=== PATIENT | female | born 1990 | race Caucasian/White ===

== ENCOUNTER 2024-07-30 20:02 | Emergency (ER) | payer OTHER, SELFPAY ==
[2024-07-30 20:06] VITALS: BP 124/84; PULSE 87; RESP 16; TEMP 36.3; O2SAT 100; BMI 25.1
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
--- NOTE | 2024-07-30 20:26 | ED.NURSE ---
PT placed in C-collar during triage. Pt states her neck feels better after being in C-collar. CMS remained intact after application of C-collar.
[2024-07-30] MEDS: diazePAM 5 MG/ML inj IV (20:33)
[2024-07-30 20:38] VITALS: O2SAT 98
[2024-07-30] MEDS: HYDROmorphone 0.5 mg/0.5 ml inj IVP ×2 (20:44→22:03)
--- OUTSIDE RECORDS SUMMARY | 2024-07-30 21:16 | XMS_ITS | Encounter Summary ---
Author Organization [facility] Address [address] [place] [id number] Care Team Providers Care Refuse Driver Name Role Phone Chela Valladares MD Primary Care Provider Herminio Jovel MD Primary Care Provider Herminio Jovel MD Unavailable [phone] Herminio Jovel MD Unavailable Hiwot Scott APRN [employer] Unavailable Herminio Jovel MD Unavailable Corina Manzo PA-C Unavailable Lorie Gayle [employer] Unavailable [phone] Rosemary Huynh [employer]ANT [employer] IN[employer] Unavailable + Hiwot Scott [employer] ACCOUNTANT [employer] IN[employer]CTOR Unavailable Herminio Jovle MD Unavailable Rosemary Huynh [employer] IN[employer] Unavailable + Handy Rebollar MD Unavailable [phone] Vibha Carrington MD Unavailable My Perez [facility] Unavailable Reason for Visit * Reason Onset Date Comments MyChart Communication 09/14/2012 Encounter Details Date Type Department Care Team (Late st Contact Info) Description 09/14/2012 [facility] [address] [phone] Herminio Jovel MD [address] [place] [phone] MyChart Communication Social History Tobacco Use Types Packs/Day Years Used Date Smoking Tobacco: Never Smokeless Tobacco: Never Alcohol Use Standard Drinks/Week Comments No 0 (1 standard drink = 0.6 oz pur e alcohol) Comments No Sex and Gender Information Value Date Recorded Sex Assigned at Female 06/23/2021 7:41 PM [employer] Legal Sex Female 3:16 AM [employer] Gender Identity Female 06/23/2021 7:41 PM [employer] Sexual Orientation Straight 06/23/2021 7: 41 PM [employer] documented as of this encounter Miscellaneous Notes * Telephone Encounter - Aliza Dixon - 09/14/2012 12:52 PM CDT See patient's [employer] message below. Please advise. Thank you! Aliza Dixon RN documented in this encounter Plan of Treatment Not on file documented as of this encounter Visit Diagnoses Not on filedocumented in this encounter Care Teams Refuse Driver Relationship Specialty Start Date End Date Chela Valladares MD [address] [place] [address] [phone] PCP - General 12/01/02 11/07/13 Herminio Jovel MD [address] [place] [address] PCP - General Family Practice 11/08/13 Herminio Jovel MD [address] [place] [address] PCP - Assigned PCP 06/27/17 08/09/18 Herminio Jovel MD [address] [place] [address], [place] [address] Assigned PCP 06/27/17 11/26/18 Hiwot Scott APRN [employer] [address] [place] [address], [place] [address] Assigned PCP 11/27/18 09/09/19 Herminio Jovel MD [address] [place] [address], [place] [address] Assigned PCP 09/10/19 10/07/19 Corina Manzo PA-C [address] [place] [address], [place] [address] Assigned PCP 10/08/19 03/16/20 Lorie Gayle APRN [employer] [address] [place] [address] Assigned PCP 03/17/20 05/11/20 Rosemary Huynh APRN [employer] [address] [place] [address], [place] [address] Assigned PCP 05/12/20 05/10/21 Hiwot Scott APRN [employer] [address] [place] [address] Assigned PCP 05/11/21 06/14/21 Herminio Jovel MD [address] [place] [address] Assigned PCP 06/29/21 04/28/24 Rosemary Huynh APRN [employer] [address] [place], [place] [id number] Assigned PCP 06/15/21 06/28/21 Handy Rebollar MD [facility] [address] [facility] [address] [place] [address] Pain Medicine 02/09/23 [place] [address] [place] [address] Assigned PCP 04/29/24 My Perez CNM [address] [place] [address] Assigned OBGYN Provider 04/29/24 documented as of this encounter
--- OUTSIDE RECORDS SUMMARY | 2024-07-30 21:16 | XMS_ITS | Encounter Summary ---
Author Organization [facility] Address [address] [place] [address] Care Team Providers Care Data Conversion Developer Name Role Phone Herminio Jovel MD Primary Care Provider Herminio Jovel MD Unavailable Rosemary Huynh APRN [facility] Unavailable + Handy Rebollar MD Unavailable [phone] Vibha Carrington MD Unavailable My Perez [facility] Unavailable [phone] Encounter Details Date Type Department Care Team (Late st Contact Info) Description 06/26/2021 [facility] [address] [phone] Herminio Jovel MD [address] [place] [phone] Social History Tobacco Use Types Packs/Day Years Used Date Smoking Tobacco: Never Smokeless Tobacco: Never Alcohol Use Standard Drinks/Week Comments No 0 (1 standard drink = 0.6 oz pur e alcohol) PHQ-2 Answer Date Recorded PHQ-2 Score 1 06/26/2021 Comments No Sex and Gender Information Value Date Recorded Sex Assigned at Female 06/23/2021 7:41 PM [employer] Legal Sex Female 3:16 AM [employer] Gender Identity Female 06/23/2021 7:41 PM [employer] Sexual Orientation Straight 06/23/2021 7: 41 PM [employer] Occupation Industry Job Start Date Job End Date Not on file Not on file Not on file Not on file documented as of this encounter Plan of Treatment Not on file documented as of this encounter Visit Diagnoses Not on filedocumented in this encounter Additional Health Concerns Assessment Noted Time PHQ-9 Depression Total Score: 8 06/26/19 8:35 AM [employer] documented as of this encounter Care Teams Data Conversion Developer Relationship Specialty Start Date End Date Herminio Jovel MD PCP - General Family Practice 11/08/13 Herminio Jovel MD [address] [place] [address] Assigned PCP 06/29/21 04/28/24 Rosemary Huynh APRN [employer] [address] [place] [address] [phone] Assigned PCP 06/15/21 06/28/21 Handy Rebollar MD [facility] [address] [facility] [address] [place] [address] Pain Medicine 02/09/23 [place] [address] [place] [address] Assigned PCP 04/29/24 My Perez CNM [phone] [facility] [address] [place], [place] [id number] Assigned OBGYN Provider 04/29/24 documented as of this encounter
--- OUTSIDE RECORDS SUMMARY | 2024-07-30 21:16 | XMS_ITS | Encounter Summary ---
Author Organization [place] Address [address] [place] [address] Care Team Providers Care Digital Marketing Executive Name Role Phone Herminio Jovel MD Primary Care Provider [phone] Herminio Jovel MD Unavailable Herminio Jovel MD Unavailable Hiwot Scott MAPPING ENGINEER INSURANCE ACCOUNT SPECIALIST Unavailable Herminio Jovel MD Unavailable Corina Manzo PA-C Unavailable Lorie Gayle MAPPING ENGINEER INSURANCE ACCOUNT SPECIALIST Unavailable [phone] Rosemary Huynh MAPPING ENGINEER INSURANCE ACCOUNT SPECIALIST Unavailable + Hiwot Scott APRN INSURANCE ACCOUNT SPECIALIST Unavailable Herminio Jovel MD Unavailable Rosemary Huynh MAPPING ENGINEER INSURANCE ACCOUNT SPECIALIST Unavailable + Handy Rebollar MD Unavailable [phone] Vibha Carrington MD Unavailable My Perez [facility] Unavailable [phone] Encounter Details Date Type Department Care Team (Late st Contact Info) Description 01/15/2014 [facility] [address] [address] Neeraj Pierce, OPERATOR SUPPLY Social History Tobacco Use Types Packs/Day Years Used Date Smoking Tobacco: Never Smokeless Tobacco: Never Alcohol Use Standard Drinks/Week Comments No 0 (1 standard drink = 0.6 oz pur e alcohol) Comments Yes Sex and Gender Information Value Date Recorded Sex Assigned at Female 06/23/2021 7:41 PM VP INFORMATICS Legal Sex Female 3:16 AM VP INFORMATICS Gender Identity Female 06/23/2021 7:41 PM VP INFORMATICS Sexual Orientation Straight 06/23/2021 7: 41 PM VP INFORMATICS documented as of this encounter Plan of Treatment Not on file documented as of this encounter Visit Diagnoses Not on filedocumented in this encounter Care Teams Digital Marketing Executive Relationship Specialty Start Date End Date Herminio Jovel MD PCP - General Family Practice 11/08/13 Herminio Jovel MD [address] [place] [address] [id number] PCP - Assigned PCP 06/27/17 08/09/18 Herminio Jovel MD [address] [place] [address] [id number] Assigned PCP 06/27/17 11/26/18 Hiwot Scott APRN INSURANCE ACCOUNT SPECIALIST [address] [place] [address] [id number] Assigned PCP 11/27/18 09/09/19 Herminio Jovel MD [address] [place] [address] [id number] Assigned PCP 09/10/19 10/07/19 Corina Manzo PA-C [address] [place] [address] [id number] Assigned PCP 10/08/19 03/16/20 Lorie Gayle APRN INSURANCE ACCOUNT SPECIALIST [address] [place] [address] [phone] Assigned PCP 03/17/20 05/11/20 Rosemary Huynh APRN INSURANCE ACCOUNT SPECIALIST [address] [place] [id number] Assigned PCP 05/12/20 05/10/21 Hiwot Scott APRN INSURANCE ACCOUNT SPECIALIST [address] [place] [address] [phone] Assigned PCP 05/11/21 06/14/21 Herminio Jovel MD [address] [place] [address] [id number] Assigned PCP 06/29/21 04/28/24 Rosemary Huynh APRN INSURANCE ACCOUNT SPECIALIST [address] [place] [address] [id number] Assigned PCP 06/15/21 06/28/21 Handy Rebollar MD [facility] [address] [facility] [address] [place] [address] Pain Medicine 02/09/23 [place] [address] [place] [address] Assigned PCP 04/29/24 My Perez CNM [address] [facility] [address] [place] [address] Assigned OBGYN Provider 04/29/24 documented as of this encounter
--- OUTSIDE RECORDS SUMMARY | 2024-07-30 21:16 | XMS_ITS | Encounter Summary ---
Author Organization [place] Address [address] [facility] [place] [address] Care Team Providers Care Toxicology Teacher Name Role Phone Herminio Jovel MD Primary Care Provider Handy Rebollar MD Unavailable [phone] Vibha Carrington MD Unavailable My Perez CNM Unavailable [phone] Reason for Referral * Diagnostic Imaging Ultrasound (Routine) - Pending Review Specialty Diagnoses / Procedures Referred By Contsilvia t Referred To Contact Radiology. Diagnoses Breakthrough bleeding with IUD Procedures US Pelvic Complete with Transvaginal My Perez CNM [address] [place] [address] Phone: tel: fax: Referral ID Status Reason Start Date Expiration Date V isits Requested Visits Authorized [id number] Pending Review 05/17/2024 05/17/2025 1 1 RATIVE ENGRAVER Encounter Details Date Type Department Care Team (Latest Contact Info) Description 05/17/2024 [facility] Women[facility] [address] [place] [id number] My Perez CNM [address] [place] [address] Breakthrough bleeding with IUD (Primary Dx) Social History Tobacco Use Types Packs/Day Years Used Date Smoking Tobacco: Never Smokeless Tobacco: Never Alcohol Use Standard Drinks/Week Comments No 0 (1 standard drink = 0.6 oz pur e alcohol) PHQ-2 Answer Date Recorded PHQ-2 Score 0 08/16/2023 Adolescent Education Answer Date Record ed Getting School Help Needed Not on file 03/10 Interpersonal Safety Answer Date Record ed Do you feel physically and e motionally safe where you currently live? Yes 04/11/2024 Within the past 12 months, h ave you been hit, slapped, kicked or otherwise physically hurt by someone? No 04/11/2024 Within the past 12 months, h ave you been humiliated or emotionally abused in other ways by your partner or ex-partner? No 04/11/2024 Comments No Sex and Gender Information Value Date Recorded Sex Assigned at Female 06/23/2021 7:41 PM DECORATIVE ENGRAVER Legal Sex Female 3:16 AM DECORATIVE ENGRAVER Gender Identity Female 06/23/2021 7:41 PM DECORATIVE ENGRAVER Sexual Orientation Straight 06/23/2021 7: 41 PM DECORATIVE ENGRAVER Occupation Industry Job Start Date Job End Date Not on file Not on file Not on file Not on file documented as of this encounter Miscellaneous Notes * Telephone Encounter - Leanna Lora RN - 05/17/2024 10:17 AM DECORATIVE ENGRAVER Please address the my chart message. Pt had a Mirena IUD inserted on 04/21/24. Has concerns with bleeding. Especially after intercourse. Would you like her to have a pelvic US to check the placement of the IUD? Ronit Lora RN RATIVE ENGRAVER documented in this encounter Plan of Treatment Scheduled Orders Name Type Priority Associated Diagnoses Orde r Schedule US Pelvic Complete with Transvaginal Imaging Routine Breakthrough bleeding with IUD Expected: 05/17/2024 (Approximate), Expires: 05/17/2025 documented as of this encounter Visit Diagnoses Diagnosis Breakthrough bleeding with IUD- Primary Metrorrhagia documented in this encounter Additional Health Concerns Assessment Noted Time PHQ-9 Depression Total Score: 8 06/26/19 22 8:35 AM DECORATIVE ENGRAVER documented as of this encounter Care Teams Toxicology Teacher Relationship Specialty Start Date End Date Herminio Jovel MD PCP - General Family Practice 11/08/13 Handy Rebollar MD [facility] [address] [facility] [address] [place] [address] Pain Medicine 02/09/23 [place] [address] [place] [address] Assigned PCP 04/29/24 My Perez CNM [address] [place] [address] Assigned OBGYN Provider 04/29/24 documented as of this encounter
--- OUTSIDE RECORDS SUMMARY | 2024-07-30 21:16 | XMS_ITS | Clinical Summary ---
Author Organization [place] Address [address] [place] [address] Care Team Providers Care Milk Vendor Name Role Phone Connie Jovel MD Primary Care Provider Handy Rebollar MD Unavailable [phone] Vibha Carrington MD Unavailable My Perez CNM Unavailable [phone] Allergies Active Allergy Reactions Criticality Noted Date Comments Hydrocodone-Acetaminophen 05/16/2019 Other reaction(s): Headache Patient reported, pharmacy should review with her and her home meds. Medications MULTIVITAMIN OR 1 daily Acti ve cyclobenzaprine (FLEXERIL) 10 MG tabletIndications :Chronic low back pain, unspecified back pain laterality, with sciatica presence unspecified Take 1 tablet (10 mg) by mouth nightly as needed for muscle spasms 30 tablet 0 6 Active norgestrel-ethiny l estradiol (LO/OVRAL) 0.3-30 MG-MCG tabletIndications :Encounter for initial prescription of contraceptive pills Take 1 tablet by mouth daily. 90 tablet 4 Active amphetamine-dextr oamphetamine (ADDERALL) 10 MG tabletIndications :ADHD (attention deficit hyperactivity disorder), combined type Take 1 tablet (10 mg) by mouth daily. In the afternoon. 30 tablet 5 Active amphetamine-dextr oamphetamine (ADDERALL) 20 MG tabletIndications :ADHD (attention deficit hyperactivity disorder), combined type Take 1 tablet (20 mg) by mouth 3 times daily. 90 tablet 5 Active amphetamine-dextr oamphetamine (ADDERALL) 20 MG tabletIndications :ADHD (attention deficit hyperactivity disorder), combined type Take 1 tablet (20 mg) by mouth 2 times daily. 60 tablet 5 09/13/19 25 Active amphetamine-dextr oamphetamine (ADDERALL) 10 MG tabletIndications :ADHD (attention deficit hyperactivity disorder), combined type Take 1 tablet (10 mg) by mouth daily. In the afternoon. 30 tablet 5 09/12/19 25 Active amphetamine-dextr oamphetamine (ADDERALL) 20 MG tabletIndications :ADHD (attention deficit hyperactivity disorder), combined type Take 1 tablet (20 mg) by mouth 2 times daily. 60 tablet 5 10/13/19 25 Active amphetamine-dextr oamphetamine (ADDERALL) 10 MG tabletIndications :ADHD (attention deficit hyperactivity disorder), combined type Take 1 tablet (10 mg) by mouth daily. Take 1 tab in pm as needed 30 tablet 5 10/12/19 25 Active amphetamine-dextr oamphetamine (ADDERALL) 10 MG tabletIndications :ADHD (attention deficit hyperactivity disorder), combined type Take 1 tablet (10 mg) by mouth daily. In the afternoon. 30 tablet 5 07/27/19 25 Discontinu ed(Reorder (No AVS)) amphetamine-dextr oamphetamine (ADDERALL) 20 MG tabletIndications :ADHD (attention deficit hyperactivity disorder), combined type Take 1 tablet (20 mg) by mouth 3 times daily. 90 tablet 5 07/27/19 25 Discontinu ed(Reorder (No AVS)) amphetamine-dextr oamphetamine (ADDERALL) 10 MG tabletIndications :ADHD (attention deficit hyperactivity disorder), combined type Take 1 tablet (10 mg) by mouth daily. Take 1 tab in pm as needed 30 tablet 4 07/27/19 25 Discontinu ed(Reorder (No AVS)) amphetamine-dextr oamphetamine (ADDERALL) 20 MG tabletIndications :ADHD (attention deficit hyperactivity disorder), combined type Take 1 tablet (20 mg) by mouth 2 times daily. 60 tablet 4 07/27/19 25 Discontinu ed(Reorder (No AVS)) amphetamine-dextr oamphetamine (ADDERALL) 10 MG tabletIndications :ADHD (attention deficit hyperactivity disorder), combined type Take 1 tablet (10 mg) by mouth daily. In the afternoon. 30 tablet 5 07/27/19 25 Discontinu ed(Reorder (No AVS)) amphetamine-dextr oamphetamine (ADDERALL) 20 MG tabletIndications :ADHD (attention deficit hyperactivity disorder), combined type Take 1 tablet (20 mg) by mouth 2 times daily. 60 tablet 5 07/27/19 25 Discontinu ed(Reorder (No AVS)) Active Problems Problem Noted Date Diagnosed Date ASCUS with positive high risk HPV cervical 04/21 Overview (07/27/2024): 2009 NIL pap 2012 NIL pap 2016 NIL pap 2019 NIL pap 04/21/24 ASCUS pap, + HR HPV (not 16 or 18). Plan colp due by 07/22/24 05/01/24 LM on VM. Splysthart message sent. Pt read message 07/06/24 [place]--no showed appt 07/27/24 Reminder Mychart ADHD (attention deficit hype ractivity disorder), combined type 01/30/2022 Panic attack 06/26/2021 Generalized anxiety disorder 12/25/2020 Insomnia, unspecified type 06/22/2017 Chronic low back pain 01/14/2009 Overview (06/22/2017): Patient is followed by CONNIE JOVEL for ongoing prescription of pain medication. All refills should be approved by this provider, or covering partner. Medication(s): percocet 5/325 #40 per month. Dilaudid 2 mg #20 per month Diazepam 5 mg #20 per month for back spasms Flexeril 10 mg #30 per month Clinic visit frequency required: Q 6 months Controlled substance agreement on file: Yes Date(s): Date(s): 08/05/12 Pain Clinic evaluation in the past: Yes DIRE Total Score(s): No flowsheet data found. Last [facility] website verification: 06/22/2017 [email or web address] Resolved Problems Problem Noted Date Diagnosed Date Resolved Date Insomnia - CSA 08/05/12 - ever y 6 month med check appointments 03/22/2015 06/22/2017 Overview (03/22/2015): Patient is followed by CONNIE JOVEL for ongoing prescription of AMBIEN for insomnia. All refills should be approved by this provider, or covering partner. Medication(s): ambien 10 mg . Maximum quantity per month: 30 Clinic visit frequency required: Q 6 months Controlled substance agreement on file: Yes Date(s): 08/05/12 Benzodiazepine use reviewed by psychiatry: No Last [facility] website verification: done on 02/20/15 [email or web address] Controlled substance agreeme nt signed on 08/05/2012 - every 4 month med check appts 08/05/2012 03/22/2015 Overview (07/16/2014): Patient is followed by Bossman Jovel MD for ongoing prescription of a controlled medicine. Medicine: percocet 5/325 . Maximum use per month: 30 Dilaudid 2 mg 1-2 q 6 hours for severe pain # 20 per 30 days Valium 5 mg q 6 hours - # 20 per month Expected duration: uncertain Medication agreement on file: YES - signed: 08/05/2012 Clinic visit recommended: Q 4 months Sprain of lumbar region 09/23/201112/2011 CARDIOVASCULAR SCREENING; LD L GOAL LESS THAN 160 04/06/2010 10/04/2019 depressive disorder -FULL REMISS- on meds 06/29/2007 06/30/2012 Other acne 06/13/2004 06/26/2021 Encounters Date Type Department Care Team Description 07/27/2024 My[facility] Refill [address] [phone] Connie Jovel MD Refill Request 05/17/2024 [facility] Medical Advice [facility] Women's [address] [place] [phone] Chris My Anya, KARLA Breakthrough bleeding with IUD (Primary Dx) 05/11/[address] [place] [address] Connie Jovel MD Refill Request from Last 3 Months Immunizations Name Administration Dates Next Due DTAP (<7y) 12/14/1994 HIB (PRP-T) 12/27/1990,09/20/1990,07/19/1990 HPV 02/11/2010,01/26/2008 HepB 04/29/2001,05/09/1998,06/12/1997 Historical DTP/aP 03/15/1991, 0,02/05/1990,1989 Influenza Vaccine >6 months,quad, PF 03/18/2016, 04/03/2015,03/28/2013 MMR 04/29/2001,12/27/1990 Mantoux Tuberculin Skin Test 02/11/2010 Meningococcal ACWY (Menactra ) 01/26/2008 OPV, trivalent, live 12/14/1994,03/15/19 91,02/05/1990,1989 TD,PF 7+ (Tenivac) 12/13/2001 TDAP (Adacel,Boostrix) 07/08/2013 TDAP Vaccine (Boostrix) 01/23/2016,06/12/2013, Varicella 10/08/1997 Family History Medical History Relation Comments Diabetes Father Other Cancer Father Prostate - sprea d to inguinal lymph nodes Prostate Cancer Father Prostate removal fall 2012. Heart Disease Maternal Grandfather ag e 61 Cerebrovascular Disease Maternal Grandmother Osteoporosis Maternal Grandmother Anxiety Disorder Mother Hyperlipidemia Mother Hypertension Mother Diabetes Other 1 Great grandmothe r Diabetes Other 2 Cancer Paternal Grandfather lung deceas ed Circulatory Paternal Grandmother aneursym de ceased Relation Status Comments Father Maternal Grandfather Maternal Grandmother Mother Other 1 Other 2 Paternal Grandfather Paternal Grandmother Social History Tobacco Use Types Packs/Day Years Used Date Smoking Tobacco: Never Smokeless Tobacco: Never Tobacco Cessation:Counseling Given: No Alcohol Use Standard Drinks/Week Comments No 0 [...] Sex Assigned at Female 06/23/2021 7:41 PM COLD ROLL OPERATOR Legal Sex Female 3:16 AM COLD ROLL OPERATOR Gender Identity Female 06/23/2021 7:41 PM COLD ROLL OPERATOR Sexual Orientation Straight 06/23/2021 7: 41 PM COLD ROLL OPERATOR Occupation Industry Job Start Date Job End Date Not on file Not on file Not on file Not on file Last Filed Vital Signs Vital Sign Reading Time Taken Comments Blood Pressure 108/64 04/21/2024 9:55 AM COLD ROLL OPERATOR Pulse 107 04/11/2024 9:25 AM COLD ROLL OPERATOR Temperature 37.1 C (98.7 F) 04/11/2024 9:25 AM COLD ROLL OPERATOR Respiratory Rate 18 04/11/2024 9:25 AM COLD ROLL OPERATOR Oxygen Saturation 100% 04/11/2024 9:25 AM COLD ROLL OPERATOR Inhaled Oxygen Concentration - - Weight 76.2 kg (168 lb) 04/21/2024 9:55 AM COLD ROLL OPERATOR Height 170.2 cm (5' 7) 04/21/2024 9:55 AM COLD ROLL OPERATOR Body Mass Index 26.31 04/21/2024 9:55 AM COLD ROLL OPERATOR Plan of Treatment Health Maintenance Due Date Last Done Comments ADVANCE CARE PLANNING 1989 YEARLY PREVENTIVE VISIT 01/13/2005 01/14/2004 HPV IMMUNIZATION (3 - 3-dose series) 05/06/2010 02/11/2010, 01/26/2008 URINE DRUG SCREEN 06/11/2023 06/11/2022 ANNUAL REVIEW OF HM ORDERS 11/20/2023 11/19/2022, INFLUENZA VACCINE (#1) 2024 9 (Declined), 03/18/2016, 04/03/2015, Additional history exists PHQ-2 (once per calendar year) 2024 08/16/2023, 07/22/2023, 11/19/2022, Additional history exists COLPOSCOPY 07/21/2024 DTAP/TDAP/TD IMMUNIZATION (10 - Td or Tdap) 01/22/2026 01/23/2016, 07/08/2013, 06/12/2013, Additional history exists HPV TEST 04/21/2029 04/21/2024 PAP 04/21/2029 04/21/2024, 04/07, 09/08/2018, Additional history exists ZOSTER IMMUNIZATION (1 of 2) 09/13/2039 HEPATITIS B IMMUNIZATION Completed 001, 05/09/1998, 06/12/1997 MENINGITIS IMMUNIZATION Completed 01/26/2008 COVID-19 Vaccine Discontinued HEPATITIS C SCREENING Discontinued HIV SCREENING Discontinued Pneumococcal Vaccine: Pediatrics (0 to 5 Years) and At-Risk Patients (6 to 49 Years) Aged Out No longer eligible based on patient's age to complete this topic Procedures Procedure Name Priority Date/Time Associated Diagnosis Comments HPV AND GYNECOLOGIC CYTOLOGY PANEL Routine 04/21/2024 10:30 AM [facility] Cervical cancer screening from Last 3 Months or Most Recently Relevant to Health Maintenance Results * (ABNORMAL) HPV and Gynecologic Cytology Panel ??? Recommended Age 30-65 Years (04/21/2024 10:30 AM COLD ROLL OPERATOR) Human Papilloma Virus 16 DNA Negative Negative 04/25/2024 7:34 AM COLD ROLL OPERATOR [facility] Human Papilloma Virus 18 DNA Negative Negative 04/25/2024 7:34 AM [facility] Human Papilloma Virus Other Positive(A) Negative 04/25/2024 7:34 AM [facility] FINAL DIAGNOSIS This patient's sample is positive for other HR HPV DNA (types 31, 33, 35, 39, 45, 51, 52, 56, 58, 59, 66 or 68), not HPV 16 or HPV 18 DNA. This result requires clinical correlation with concurrent cytology findings. METHODOLOGY: The LIN TV system uses automated extraction, simultaneous amplification of HPV (E6/E7 oncogenes) and beta-globin, followed by real time detection of fluorescent labeled HPV and beta globin using specific oligonucleotide probes. The test specifically identifies types HPV 16 DNA and HPV 18 DNA while concurrently detecting the rest of the high risk types (31, 33, 35, 39, 45, 51, 52, 56, 58, 59, 66 or 68). COMMENTS: This test is not intended for use as a screening device for woman under age 30 with normal cervical cytology. Results should be correlated with cytologic and histologic findings. Close clinical follow up is recommended. Please see the separate Gynecologic Cytology (Pap) report from the same collection date. 04/25/2024 7:34 AM COLD ROLL OPERATOR [facility]AGNOSTICS Brushing ENDOCERVICAL STRUCTURE / Unknown Non-blood Collection / Unknown 04/21/2024 10:30 AM COLD ROLL OPERATOR 04/21/2024 10:42 AM COLD ROLL OPERATOR My Perez [facility] - BLOOD ORDERABLES Final Result [facility] Specialty Lab [address] [facility], [address] [place] [address], [place] [facility] Molecular Diagnostics [address] [facility] [place] [address], [facility] from Last 3 Months or Most Recently Relevant to Health Maintenance Insurance [facility] Care Teams Milk Vendor Relationship Specialty Start Date End Date Connie Jovle MD PCP - General Family Practice 11/08/13 Handy Rebollar MD [facility] [address] [facility] [address] [place] [address] Pain Medicine 02/09/23 [place] [address] [place] [address] Assigned PCP 04/29/24 My Perez CNM [address] [address] Assigned OBGYN Provider 04/29/24
--- OUTSIDE RECORDS SUMMARY | 2024-07-30 21:16 | XMS_ITS | Encounter Summary ---
Author Organization [facility] Address [address] [place] [address] Care Team Providers Care Ginner Helper Name Role Phone Chela Valladares MD Primary Care Provider DoctorSu MD Primary Care Provider Unavailabl Herminio Son MD Primary Care Provider Herminio Jovel MD Unavailable Herminio Jovel MD Unavailable Hiwot Scott APRN PRECISION CROP MANAGER Unavailable Herminio Jovel MD Unavailable Corina Manzo PA-C Unavailable Lorie Gayle CAREER CENTER DIRECTOR PRECISION CROP MANAGER Unavailable [phone] Rosemary Huynh CAREER CENTER DIRECTOR PRECISION CROP MANAGER Unavailable + Hiwot Scott CAREER CENTER DIRECTOR PRECISION CROP MANAGER Unavailable Herminio Jovel MD Unavailable Rosemary Huynh CAREER CENTER DIRECTOR PRECISION CROP MANAGER Unavailable + Handy Rebollar MD Unavailable [phone] Vibha Carrington MD Unavailable My Perez [facility] Unavailable [phone] Encounter Details Date Type Department Care Team (Late st Contact Info) Description 05/27/2002 [facility] [address] [place] [phone] Harjinder Berkowitz MD XXX RESIGNED XXX [address] [place] [address] ER ENCOUNTER (Primary Dx) Social History Tobacco Use Types Packs/Day Years Used Date Smoking Tobacco: Never Smokeless Tobacco: Never Alcohol Use Standard Drinks/Week Comments No 0 (1 standard drink = 0.6 oz pur e alcohol) Comments No Sex and Gender Information Value Date Recorded Sex Assigned at Female 06/23/2021 7:41 PM CANDY POLISHER Legal Sex Female 3:16 AM CANDY POLISHER Gender Identity Female 06/23/2021 7:41 PM CANDY POLISHER Sexual Orientation Straight 06/23/2021 7: 41 PM CANDY POLISHER Occupation Industry Job Start Date Job End Date Not on file Not on file Not on file Not on file documented as of this encounter Progress Notes * 05/27/2002 11:59 PM CSTAddended by: ALE DAVIDSON on: 06/05/2002,12:21 PM Modules accepted: Progress Notes 00 :00 Emergency Department Encounter-[facility] () [Entered: 00:00 Transcrip tion ([facility])] : 88 CHIEF COMPLAINT: Headache, neck pain. HISTORY OF PRESENT ILLNESS: Emanuel is a 11-year-old girl. She presents to the Emergency Department with a history of being ill for the last week. On Wednesday, she had a headache and nausea that continued and she saw the doctor a few sami es. It was treated like a migraine. Now yesterday she developed aches all over. She has had no sig nificant fever. She otherwise has felt a little bit of nausea, but otherwise negative. REVIEW OF S TEMS: GENERALLY, she has had no fever. EYES without erythema or discharge, though she says she feel s pressure. ENT she has no nasal drainage. No sore throat. NECK reveals neck pain bilaterally on e ither side of the midline on her posterior neck, no anterior neck. RESPIRATORY she has had no signif icant cough. GASTROINTESTINAL she has had nausea, but no vomiting, and no diarrhea. GENITOURINARY sh loraine has had no difficulty with urination. She has her period but she does not use tampons. MUSCULOSKELE NICOLE achy all over. PAST MEDICAL HISTORY: Allergies - none. Medications - Minocycline, hydrocodone. PAST MEDICAL HISTORY: Acne and history of migraines. SOCIAL HISTORY: She is accompanied by darcie forman. PHYSICAL EXAMINATION: This is an alert and cooperative young woman in no acute distress. Her t emperature is 98.3, pulse 91, respiratory rate 20, blood pressure 122/65. HEENT reveals atraumatic, normocephalic skull and face. Pupils are equal and reactive. She has full extraocular movements. O ropharynx is moist and benign without tonsillar hypertrophy nor exudate. NECK is supple with bilater al anterior cervical adenopathy that is not tender. She has no posterior nodes. She has bilaterally tender splenius capitis. Her LUNGS are clear. CARDIAC examination reveals normal S1, S2 without mur mur, rub or gallop. Her ABDOMEN is soft and nontender without hepatosplenomegaly or mass. EXTREMITI ES are without clubbing, cyanosis or edema. NEUROLOGICALLY, the patient is alert. Cranial nerves II -XII are intact. Strength is 5/5 throughout. She has negative Romberg. MEDICAL DECISION MAKING: [address] 1: Headache and muscle aches all over. I feel this likely an infectious disease cause. [place] spot is negative. CPK is pending. Urinalysis is negative. I was looking for any protein or blood in the urine that would be consistent with myositis. There is none noted in the urine. At this point , I feel the patient can be treated symptomatically and discharged home. DISCHARGE PLAN: Tyleno l and Motrin. Fluids and rest. DISCHARGE DIAGNOSES: History of headache and muscle pain. DISPOSIT ION: Home. [id number] _ [facility] MD MT: Document: [id number] [place], [place] Name: JUDYEMANUEL EMERGENCY ROOM ENCOUNTER Page 2 of 2 LCN: KELLEE DSC: 05/27/2002 [place], [place] N stefanie: MR#: : Admit Date: EMANUEL BRUNSON -12 1990 05/27/2002 Doctor: DELTA RHODES MD EMERGENCY ROOM ENCOUNTER Page 1 of 2 Electronically filed by Ale Davidson 06/05/2002 12: 21 PM documented in this encounter Plan of Treatment Not on file documented as of this encounter Visit Diagnoses Diagnosis ER ENCOUNTER- Primary documented in this encounter Care Teams Ginner Helper Relationship Specialty Start Date End Date Chela Valladares MD [address] [place] [address] PCP - General 12/01/02 11/07/13 Su Culver MD PCP - General 07/22/01 11/30/02 Herminio Jovel MD PCP - General Family Practice 11/08/13 Herminio Jovel MD [address] [place] [address] PCP - Assigned PCP 06/27/17 08/09/18 Herminio Jovel MD [address] [place] [address] Assigned PCP 06/27/17 11/26/18 Hiwot Scott, CAREER CENTER DIRECTOR PRECISION CROP MANAGER [address] [place] [address] Assigned PCP 11/27/18 09/09/19 Herminio Jovel MD [address] [place] [address] 21566 Assigned PCP 09/10/19 10/07/19 Corina Manzo PA-C [address] [place] [address]36 Assigned PCP 10/08/19 03/16/20 Lorie Gayle APRN PRECISION CROP MANAGER [address] [place] [address] Assigned PCP 03/17/20 05/11/20 Rosemary Huynh, GOMEZ PRECISION CROP MANAGER [address] [place] [address] Assigned PCP 05/12/20 05/10/21 Hiwot Scott APRN PRECISION CROP MANAGER [address] [place] [address]31 Assigned PCP 05/11/21 06/14/21 Herminio Jovel MD [address] [place] [address]6077 Assigned PCP 06/29/21 04/28/24 Rosemary Huynh, GOMEZ PRECISION CROP MANAGER [address] [place] [address]758 Assigned PCP 06/15/21 06/28/21 Handy Rebollar MD CHAR PERCISION PAIN MANAGEMENT [address] [address] Pain Medicine 02/09/23 [place] [address] [place] [address] Assigned PCP 04/29/24 My Perez [facility] [address] [place] [address] Assigned OBGYN Provider 04/29/24 documented as of this encounter
--- OUTSIDE RECORDS SUMMARY | 2024-07-30 21:16 | XMS_ITS | Encounter Summary ---
Author Organization [place] Address [address] [place] [address] Care Team Providers Care Peanut Farmer Name Role Phone Herminio Jovel MD Primary Care Provider Herminio Jovel MD Unavailable [phone] Handy Rebollar MD Unavailable [phone] Vibha Carrington MD Unavailable My Perez [facility] Unavailable [phone] Encounter Details Date Type Department Care Team (Late st Contact Info) Description 02/23/2022 [facility] Medical Advice [address] [phone] Wendy Manzano, [facility] Social History Tobacco Use Types Packs/Day Years Used Date Smoking Tobacco: Never Smokeless Tobacco: Never Alcohol Use Standard Drinks/Week Comments No 0 (1 standard drink = 0.6 oz pur e alcohol) PHQ-2 Answer Date Recorded PHQ-2 Score 1 06/26/2021 Comments No Sex and Gender Information Value Date Recorded Sex Assigned at Female 06/23/2021 7:41 PM STUDENT SERVICES ADVISOR Legal Sex Female 3:16 AM STUDENT SERVICES ADVISOR Gender Identity Female 06/23/2021 7:41 PM STUDENT SERVICES ADVISOR Sexual Orientation Straight 06/23/2021 7: 41 PM STUDENT SERVICES ADVISOR Occupation Industry Job Start Date Job End Date Not on file Not on file Not on file Not on file documented as of this encounter Plan of Treatment Not on file documented as of this encounter Visit Diagnoses Not on filedocumented in this encounter Additional Health Concerns Assessment Noted Time PHQ-9 Depression Total Score: 8 06/26/19 22 8:35 AM STUDENT SERVICES ADVISOR documented as of this encounter Care Teams Peanut Farmer Relationship Specialty Start Date End Date Herminio Jovel MD PCP - General Family Practice 11/08/13 Herminio Jovel MD [address] [place] [address] Assigned PCP 06/29/21 04/28/24 Handy Rebollar MD CHAR PERCISION PAIN MANAGEMENT [address] [facility] [address] [place] [address] Pain Medicine 02/09/23 [place] [address] [place] [address] Assigned PCP 04/29/24 My Perez CNM [address] [facility] 700 [place] [address] Assigned OBGYN Provider 04/29/24 documented as of this encounter
--- OUTSIDE RECORDS SUMMARY | 2024-07-30 21:16 | XMS_ITS | Encounter Summary ---
Author Organization [facility] Address [address] [place] [address] Care Team Providers Care Smoking Tobacco Packer Hand Name Role Phone Herminio Jovel MD Primary Care Provider Herminio Jovel MD Unavailable Handy Rebollar MD Unavailable [phone] Vibha Carrington MD Unavailable My Perez [facility] Unavailable [phone] Encounter Details Date Type Department Care Team (Late st Contact Info) Description 10/20/2021 My[facility] Medical Advice [address] [phone] Wendy Manzano, [facility] Social History Tobacco Use Types Packs/Day Years Used Date Smoking Tobacco: Never Smokeless Tobacco: Never Alcohol Use Standard Drinks/Week Comments No 0 (1 standard drink = 0.6 oz pur e alcohol) PHQ-2 Answer Date Recorded PHQ-2 Score 1 06/26/2021 Comments No Sex and Gender Information Value Date Recorded Sex Assigned at Female 06/23/2021 7:41 PM MID LEVEL BUSINESS ANALYST Legal Sex Female 3:16 AM MID LEVEL BUSINESS ANALYST Gender Identity Female 06/23/2021 7:41 PM MID LEVEL BUSINESS ANALYST Sexual Orientation Straight 06/23/2021 7: 41 PM MID LEVEL BUSINESS ANALYST Occupation Industry Job Start Date Job End Date Not on file Not on file Not on file Not on file documented as of this encounter Plan of Treatment Not on file documented as of this encounter Visit Diagnoses Not on filedocumented in this encounter Additional Health Concerns Assessment Noted Time PHQ-9 Depression Total Score: 8 06/26/19 22 8:35 AM MID LEVEL BUSINESS ANALYST documented as of this encounter Care Teams Smoking Tobacco Packer Hand Relationship Specialty Start Date End Date Herminio Jovel MD PCP - General Family Practice 11/08/13 Herminio Jovel MD [address] [place] [address] Assigned PCP 06/29/21 04/28/24 Handy Rebollar MD CHAR PERCISION PAIN MANAGEMENT [address] [facility] [address] [place] [address] Pain Medicine 02/09/23 [place] [address] [place] [address] Assigned PCP 04/29/24 My Perez CNM [address] [facility] 700 [place] [address] Assigned OBGYN Provider 04/29/24 documented as of this encounter
--- OUTSIDE RECORDS SUMMARY | 2024-07-30 21:16 | XMS_ITS | Encounter Summary ---
Author Organization [facility] Address [address] [place] [address] Care Team Providers Care Hogshead Opener Name Role Phone Chela Vlaladares MD Primary Care Provider Herminio Jovel MD Primary Care Provider Herminio Jovel MD Unavailable [phone] Herminio Jovel MD Unavailable Hiwot Scott APRN CERTIFICATION OFFICER Unavailable Herminio Jovel MD Unavailable [phone] Corina Manzo PA-C Unavailable Lorie Gayle STATION MECHANIC CERTIFICATION OFFICER Unavailable [phone] Rosemary Huynh STATION MECHANIC CERTIFICATION OFFICER Unavailable + Hiwot Scott STATION MECHANIC CERTIFICATION OFFICER Unavailable Herminio Jovel MD Unavailable Rosemary Huynh STATION MECHANIC CERTIFICATION OFFICER Unavailable + Handy Rebollar MD Unavailable [phone] Vibha Carrington MD Unavailable My Perez Unavailable Encounter Details Date Type Department Care Team (Late st Contact Info) Description 09/16/2013 [facility] [address] [place] [phone] Herminio Jovel MD [address] [place] [address] [phone] Social History Tobacco Use Types Packs/Day Years Used Date Smoking Tobacco: Never Smokeless Tobacco: Never Alcohol Use [place] Drinks/Week Comments No 0 (1 standard drink = 0.6 oz pur e alcohol) Comments Yes Sex and Gender Information Value Date Recorded Sex Assigned at Female 06/23/2021 7:41 PM FOOD TECHNICIAN Legal Sex Female 3:16 AM FOOD TECHNICIAN Gender Identity Female 06/23/2021 7:41 PM FOOD TECHNICIAN Sexual Orientation Straight 06/23/2021 7: 41 PM FOOD TECHNICIAN documented as of this encounter Plan of Treatment Not on file documented as of this encounter Visit Diagnoses Not on filedocumented in this encounter Care Teams Hogshead Opener Relationship Specialty Start Date End Date Chela Valladares MD [address] [place] [address] PCP - General 12/01/02 11/07/13 Herminio Jovel MD [address] [place] [address] PCP - General Family Practice 11/08/13 Herminio Jovel MD [address] [place] [address] PCP - Assigned PCP 06/27/17 08/09/18 Herminio Jovel MD [address] [place] [address] Assigned PCP 06/27/17 11/26/18 Hiwot Scott APRN CERTIFICATION OFFICER [address] [place] [address] 026996 Assigned PCP 11/27/18 09/09/19 Herminio Jovel MD [address] [place] [address], [place] [address] Assigned PCP 09/10/19 10/07/19 Corina Manzo PA-C [address] [place] [address], [place] [address] Assigned PCP 10/08/19 03/16/20 Lorie Gayle APRN CERTIFICATION OFFICER [address] [place] [address], [place] [address] Assigned PCP 03/17/20 05/11/20 Rosemary Huynh APRN CERTIFICATION OFFICER [address] [place] [address], [place] [address] Assigned PCP 05/12/20 05/10/21 Hiwot Scott APRN CERTIFICATION OFFICER [address] [place] [address], [place] [address] Assigned PCP 05/11/21 06/14/21 Herminio Jovel MD [address] [place] [address], [place] [address] Assigned PCP 06/29/21 04/28/24 Rosemary Huynh APRN CERTIFICATION OFFICER [address] [place] [address], [place] [address] Assigned PCP 06/15/21 06/28/21 Handy Rebollar MD CHAR PERCISION PAIN MANAGEMENT [address] [facility] [address] [place] [address] Pain Medicine 02/09/23 [place] [address] [place] [address] Assigned PCP 04/29/[address]M [address] [place] [address] Assigned OBGYN Provider 04/29/24 documented as of this encounter
--- OUTSIDE RECORDS SUMMARY | 2024-07-30 21:16 | XMS_ITS | Encounter Summary ---
Author Organization [place] Address [address] [place] [address] Care Team Providers Care Healthcare Administration Intern Name Role Phone Herminio Jovel MD Primary Care Provider Herminio Jovel MD Unavailable Handy Rebollar MD Unavailable [phone] Vibha Carrington MD Unavailable My Perez [facility] Unavailable Encounter Details Date Type Department Care Team (Late st Contact Info) Description 11/04/2021 [facility] Medical Advice [address] [phone] Herminio Jovel MD [address] [place] [address] [id number] Social History Tobacco Use Types Packs/Day Years Used Date Smoking Tobacco: Never Smokeless Tobacco: Never Alcohol Use Standard Drinks/Week Comments No 0 (1 standard drink = 0.6 oz pur e alcohol) PHQ-2 Answer Date Recorded PHQ-2 Score 1 06/26/2021 Comments No Sex and Gender Information Value Date Recorded Sex Assigned at Female 06/23/2021 7:41 PM MOVIE SHOT CAMERAMAN Legal Sex Female 3:16 AM MOVIE SHOT CAMERAMAN Gender Identity Female 06/23/2021 7:41 PM MOVIE SHOT CAMERAMAN Sexual Orientation Straight 06/23/2021 7: 41 PM MOVIE SHOT CAMERAMAN Occupation Industry Job Start Date Job End Date Not on file Not on file Not on file Not on file documented as of this encounter Plan of Treatment Not on file documented as of this encounter Visit Diagnoses Not on filedocumented in this encounter Additional Health Concerns Assessment Noted Time PHQ-9 Depression Total Score: 8 06/26/19 22 8:35 AM MOVIE SHOT CAMERAMAN documented as of this encounter Care Teams Healthcare Administration Intern Relationship Specialty Start Date End Date Herminio Jovel MD PCP - General Family Practice 11/08/13 Herminio Jovel MD [address] [place] [address] Assigned PCP 06/29/21 04/28/24 Handy Rebollar MD CHAR PERCISION PAIN MANAGEMENT [address] [place] [address] Pain Medicine 02/09/23 [place] [address] [place] [address] Assigned PCP 04/29/24 My Perez CNM [address] [place] [address] Assigned OBGYN Provider 04/29/24 documented as of this encounter
--- OUTSIDE RECORDS SUMMARY | 2024-07-30 21:16 | XMS_ITS | Encounter Summary ---
Author Organization [place] Address [address] [place] [address] Care Team Providers Care Dehydrogenation Operator Head Name Role Phone Herminio Jovel MD Primary Care Provider Herminio Jovel MD Unavailable Herminio Jovel MD Unavailable [phone] Hiwot Scott FISHERIES TECHNICIAN CHIEF MEDICAL OFFICER Unavailable [phone] Herminio Jovel MD Unavailable [phone] Corina Manzo PA-C Unavailable [phone] Lorie Gayle FISHERIES TECHNICIAN CHIEF MEDICAL OFFICER Unavailable [phone] Rosemary Huynh FISHERIES TECHNICIAN CHIEF MEDICAL OFFICER Unavailable + Hiwot Scott APRN CHIEF MEDICAL OFFICER Unavailable Herminio Jovel MD Unavailable Rosemary Huynh FISHERIES TECHNICIAN CHIEF MEDICAL OFFICER Unavailable + Handy Rebollar MD Unavailable [phone] Vibha Carrington MD Unavailable My Perez [facility] Unavailable [phone] Reason for Visit * Reason Onset Date Comments Refill Request 11/30/2013 Encounter Details Date Type Department Care Team (Late st Contact Info) Description 11/30/2013 [facility] [address] [place] [phone] Herminio Jovel MD [address] [place] [address] [phone] Refill Request Social History Tobacco Use Types Packs/Day Years Used Date Smoking Tobacco: Never Smokeless Tobacco: Never Alcohol Use Standard Drinks/Week Comments No 0 (1 standard drink = 0.6 oz pur e alcohol) Comments Yes Sex and Gender Information Value Date Recorded Sex Assigned at Female 06/23/2021 7:41 PM AQUATIC BIOLOGIST Legal Sex Female 3:16 AM AQUATIC BIOLOGIST Gender Identity Female 06/23/2021 7:41 PM AQUATIC BIOLOGIST Sexual Orientation Straight 06/23/2021 7: 41 PM AQUATIC BIOLOGIST documented as of this encounter Miscellaneous Notes * Telephone Encounter - Herminio Jovel MD - 12/01/2013 12:40 PM CDT Signed and in NORTH in basket - Thing5 message sent * Telephone Encounter - Yael Paris RN - 11/30/2013 12:13 PM CDTThis note has been archived and cannot be retrieved at this time. documented in this encounter Plan of Treatment Not on file documented as of this encounter Visit Diagnoses Diagnosis Low back pain Lumbago Controlled substance agreement signed Encounter for long-term (current) use of other medications documented in this encounter Care Teams Dehydrogenation Operator Head Relationship Specialty Start Date End Date Herminio Jovel MD PCP - General Family Practice 11/08/13 Herminio Jovel MD [address] [place] [address] 901402 PCP - Assigned PCP 06/27/17 08/09/18 Herminio Jovel MD [address] [place] [address] 470172 Assigned PCP 06/27/17 11/26/18 Hiwot Scott APRN CHIEF MEDICAL OFFICER [address] [place] [address], [place] [address] Assigned PCP 11/27/18 09/09/19 Herminio Jovel MD [address] [place] [address], [place] [address] Assigned PCP 09/10/19 10/07/19 Corina Manzo PA-C [address] [place] [address], [place] [address] Assigned PCP 10/08/19 03/16/20 Lorie Gayle APRN CHIEF MEDICAL OFFICER [address] [place] [address] Assigned PCP 03/17/20 05/11/20 Rosemary Huynh APRN CHIEF MEDICAL OFFICER [address] [place] [address], [place] [address] Assigned PCP 05/12/20 05/10/21 Hiwot Scott APRN CHIEF MEDICAL OFFICER [address] [place] [address], [place] [address] Assigned PCP 05/11/21 06/14/21 Herminio Jovel MD [address] [place] [address], [place] [address] Assigned PCP 06/29/21 04/28/24 Rosemary Huynh APRN CHIEF MEDICAL OFFICER [address] [place] [address], [place] [address] Assigned PCP 06/15/21 06/28/21 Handy Rebollar MD CHAR PERCISION PAIN MANAGEMENT [address] [facility] 100 [place] [address] Pain Medicine 02/09/23 [place] [address] [place] [address] Assigned PCP 04/29/24 My Perez CNM [address] [place] [address] Assigned OBGYN Provider 04/29/24 documented as of this encounter
--- OUTSIDE RECORDS SUMMARY | 2024-07-30 21:16 | XMS_ITS | Encounter Summary ---
Author Organization [facility] Address [address] [place] [address] Care Team Providers Care Cosmetician Apprentice Name Role Phone Chela Valladares MD Primary Care Provider Herminio Jovel MD Primary Care Provider Herminio Jovel MD Unavailable Herminio Jovel MD Unavailable Hiwot [place] APRN ENVIRONMENTAL CONSTRUCTION ENGINEER Unavailable Herminio Jovel MD Unavailable Corina Manzo PA-C Unavailable Lorie Gayle AIR TESTER ENVIRONMENTAL CONSTRUCTION ENGINEER Unavailable [phone] Rosemary Huynh APRN ENVIRONMENTAL CONSTRUCTION ENGINEER Unavailable + Hiwot [place] AIR TESTER ENVIRONMENTAL CONSTRUCTION ENGINEER Unavailable Herminio Jovel MD Unavailable Rosemary Huynh AIR TESTER ENVIRONMENTAL CONSTRUCTION ENGINEER Unavailable + Handy Rebollar MD Unavailable [phone] Vibha Carrington MD Unavailable My [facility] Unavailable [phone] Encounter Details Date Type Department Care Team (Late st Contact Info) Description 01/12/2013 [facility] Medical Advice [address] [place] [address] Herminio Jovel MD [address] [place] [address] [phone] Social History Tobacco Use Types Packs/Day Years Used Date Smoking Tobacco: Never Smokeless Tobacco: Never Alcohol Use Standard Drinks/Week Comments No 0 (1 standard drink = 0.6 oz pur e alcohol) Comments No Sex and Gender Information Value Date Recorded Sex Assigned at Female 06/23/2021 7:41 PM SOLID CENTER WINDER Legal Sex Female 3:16 AM SOLID CENTER WINDER Gender Identity Female 06/23/2021 7:41 PM SOLID CENTER WINDER Sexual Orientation Straight 06/23/2021 7: 41 PM SOLID CENTER WINDER documented as of this encounter Plan of Treatment Not on file documented as of this encounter Visit Diagnoses Not on filedocumented in this encounter Care Teams Cosmetician Apprentice Relationship Specialty Start Date End Date Chela Valladares MD [address] [place] [address] PCP - General 12/01/02 11/07/13 Herminio Jovel MD [address] [place] [address] PCP - General Family Practice 11/08/13 Herminio Jovel MD [address] [place] [address]23[address] PCP - Assigned PCP 06/27/17 08/09/18 Herminio Jovel MD [address] [place] [address] Assigned PCP 06/27/17 11/26/18 Hiwot [place] APRN ENVIRONMENTAL CONSTRUCTION ENGINEER [address] [place] [address] [id number] Assigned PCP 11/27/18 09/09/19 Herminio Jovel MD [address] [place] [address], [place] [address] Assigned PCP 09/10/19 10/07/19 Corina Manzo PA-C [address] [place] [address], [place] [address] Assigned PCP 10/08/19 03/16/20 Lorie Gayle APRN ENVIRONMENTAL CONSTRUCTION ENGINEER [address] [place] [address], [place] [address] Assigned PCP 03/17/20 05/11/20 Rosemary Huynh APRN ENVIRONMENTAL CONSTRUCTION ENGINEER [address] [place] [address], [place] [address] Assigned PCP 05/12/20 05/10/21 Hiwot [place] APRN ENVIRONMENTAL CONSTRUCTION ENGINEER [address] [place] [address], [place] [address] Assigned PCP 05/11/21 06/14/21 Herminio Jovel MD [address] [place] [address], [place] [address] Assigned PCP 06/29/21 04/28/24 Rosemary Huynh APRN ENVIRONMENTAL CONSTRUCTION ENGINEER [address] [place] [address], [place] [address] Assigned PCP 06/15/21 06/28/21 Handy Rebollar MD [facility] [address] [facility] [address] [address] [place] [address] Pain Medicine 02/09/23 [place] [address] [place] [address] Assigned PCP 04/29/24 My [place] CNM [address] [place] [address] Assigned OBGYN Provider 04/29/24 documented as of this encounter
--- OUTSIDE RECORDS SUMMARY | 2024-07-30 21:16 | XMS_ITS | Encounter Summary ---
Author Organization [facility] Address [address] [place] [address] Care Team Providers Care Adjunct Physics Instructor Name Role Phone Herminio Jovel MD Primary Care Provider [phone] Herminio Jovel MD Unavailable Herminio Jovel MD Unavailable [phone] Hiwot [place] TANK SHOP SUPERVISOR TELEPHONE COIN BOX COLLECTOR Unavailable Herminio Jovel MD Unavailable Corina Manzo PA-C Unavailable Lorie Gayle TANK SHOP SUPERVISOR TELEPHONE COIN BOX COLLECTOR Unavailable [phone] Rosemary Huynh TANK SHOP SUPERVISOR TELEPHONE COIN BOX COLLECTOR Unavailable + Hiwot [place] APRN TELEPHONE COIN BOX COLLECTOR Unavailable [phone] Herminio Jovel MD Unavailable Rosemary Huynh TANK SHOP SUPERVISOR TELEPHONE COIN BOX COLLECTOR Unavailable + Handy Rebollar MD Unavailable [phone] Vibha Carrington MD Unavailable My [facility] Unavailable Reason for Visit * Reason Onset Date Comments Refill Request 05/15/2018 oxycodone Encounter Details Date Type Department Care Team (Late st Contact Info) Description 05/15/2018 Amara Womack [address] [place] [address] Herminio Jovel MD [address] [place] [address] Refill Request (oxycodone) Social History Tobacco Use Types Packs/Day Years Used Date Smoking Tobacco: Never Smokeless Tobacco: Never Alcohol Use Standard Drinks/Week Comments No 0 (1 standard drink = 0.6 oz pur e alcohol) Comments No Sex and Gender Information Value Date Recorded Sex Assigned at Female 06/23/2021 7:41 PM EXERCISE PHYSIOLOGY PROFESSOR Legal Sex Female 3:16 AM EXERCISE PHYSIOLOGY PROFESSOR Gender Identity Female 06/23/2021 7:41 PM EXERCISE PHYSIOLOGY PROFESSOR Sexual Orientation Straight 06/23/2021 7: 41 PM EXERCISE PHYSIOLOGY PROFESSOR Occupation Industry Job Start Date Job End Date Not on file Not on file Not on file Not on file documented as of this encounter Miscellaneous Notes * Telephone Encounter - Fuad David - 05/15/2018 8:52 AM CST Controlled Substance Refill Request for oxyCODONE-acetaminophen (PERCOCET) 5-325 MG per tablet Problem List Complete: Yes Last Written Prescription Date: 04.04.18 Last Fill Quantity: 10, # refills: 0 [place] [facility] [place] care provider: 04.04.18 Clinic visit frequency required: - Future Office visit: Controlled substance agreement on file: No. Processing: Fax Rx to listed pharmacy GATEMAN checked in past 3 months? No, route to RN CISE PHYSIOLOGY PROFESSOR * Telephone Encounter - Jania Bennett RN - 05/15/2018 8:52 AM CST Routing refill request to provider for review/approval because: Drug not [place] [facility] [place] Milagros Bennett RN [place] Triage CISE PHYSIOLOGY PROFESSOR documented in this encounter Plan of Treatment Not on file documented as of this encounter Visit Diagnoses Diagnosis Abscess of scalp Cellulitis and abscess of other specified site documented in this encounter Additional Health Concerns Assessment Noted Time PHQ-9 Depression Total Score: 3 06/22/19 18 10:26 AM EXERCISE PHYSIOLOGY PROFESSOR documented as of this encounter Care Teams Adjunct Physics Instructor Relationship Specialty Start Date End Date Herminio Jovel MD PCP - General Family Practice 11/08/13 Herminio Jovel MD [address] [place] [address] [id number] PCP - Assigned PCP 06/27/17 08/09/18 Herminio Jovel MD [address] [place] [address] 073822 Assigned PCP 06/27/17 11/26/18 Hiwot [place] APRN TELEPHONE COIN BOX COLLECTOR [address] [place] [address] Assigned PCP 11/27/18 09/09/19 Herminio Jovel MD [address] [place] [address] 842182 Assigned PCP 09/10/19 10/07/19 Corina Manzo PA-C [address] [place] [address] Assigned PCP 10/08/19 03/16/20 Lorie Gayle APRN TELEPHONE COIN BOX COLLECTOR [address] [place] [address] Assigned PCP 03/17/20 05/11/20 Rosemary uHynh APRN TELEPHONE COIN BOX COLLECTOR [address] [place] [address] Assigned PCP 05/12/20 05/10/21 Hiwot [place] APRN TELEPHONE COIN BOX COLLECTOR [address] [place] [address] Assigned PCP 05/11/21 06/14/21 Herminio Jovel MD [address] [place] [address] Assigned PCP 06/29/21 04/28/24 Rosemary Huynh APRN TELEPHONE COIN BOX COLLECTOR [address] [place] [address]58[address] Assigned PCP 06/15/21 06/28/21 Handy Rebollar MD [facility] PAIN MANAGEMENT [address] [facility] [address] [place] [address] Pain Medicine 02/09/23 [place] [address] [place] [address] Assigned PCP 04/29/24 My [place] CNM [address] [place], [place] [address] Assigned OBGYN Provider 04/29/24 documented as of this encounter
--- OUTSIDE RECORDS SUMMARY | 2024-07-30 21:16 | XMS_ITS | Clinical Summary ---
Author Organization [facility] Address [address] [place] [address] Care Team Providers Care Cardiac Care Nurse Name Role Phone Herminio Jovel MD Primary Care Provider [phone] Allergies Active Allergy Reactions Criticality Noted Date Comments Hydrocodone-Acetaminophen Headache 05/16/2019 Patient reported, pharmacy should review with her and her home meds. Medications ibuprofen (MOTRIN IB) 200 mg tabletIndications: (spontaneous vaginal delivery) Take 1-3 tablets by mouth every 6 hours if needed for Other (Specify) (for uterine cramping). Take with food. 100 tablet 04/09/20 16 Active cyclobenzaprine (FLEXERIL) 5 mg tablet Take 5 mg by mouth 3 times daily if needed for Muscle Spasm. Active oxyCODONE (ROXICODONE) 15 mg immediate release tablet Take 15 mg by mouth 4 times daily Active traZODone (DESYREL) 50 mg tablet Take 50-150 mg by mouth at bedtime if needed for Sleep. Active zolpidem (AMBIEN) 5 mg tablet Take 5 mg by mouth at bedtime if needed for Sleep. Active ondansetron (ZOFRAN ODT) 4 mg disintegrating tabletIndications: Nausea and vomiting in adult Place 1 tablet on the tongue every 6 hours if needed. 30 tablet 05/18/2019 12:07 PM RADIO NEWS ANCHOR 05/18/20 19 Active polyethylene glycol (MIRALAX; GLYCOLAX) 17 g powder for solution Take 17 g by mouth or nasogastric tube once daily if needed for Constipation. 0 05/18/20 19 Active dicyclomine (BENTYL) 10 mg capsuleIndications :Acute abdominal pain Take 2 capsules by mouth 4 times daily before meals and at bedtime. 120 capsule 05/18/2019 12:07 PM RADIO NEWS ANCHOR 05/18/20 19 Active hyoscyamine sublingual (LEVSIN SL) 0.125 mg sublIndications:Ac joe abdominal pain,Nausea and vomiting in adult Place 1 tablet under the tongue every 4 hours if needed for nausea. 10 tablet 05/19/2019 9:34 AM RADIO NEWS ANCHOR 05/19/20 19 Active pantoprazole (PROTONIX) 40 mg delayed-release tabletIndications: Nausea and vomiting in adult Take 1 Tablet (40 mg) by mouth once daily. 30 tablet. 09/20/19 21 Active Active Problems Problem Noted Date Diagnosed Date Abdominal pain, chronic, generalized 05/17/2019 (spontaneous vaginal delivery) 04/08/2016 Overview (04/08/2016): Nestor Nuchal cord with compression , delivered, current hospitalization 04/08/2016 Other normal , not first 04/07/2016 Normal labor 04/07/2016 Dyspnea Overview (04/07/2016): negative evaluation in ED 03/22 Resolved Problems Problem Noted Date Diagnosed Date Resolved Date (normal spontaneous vaginal delivery) 09/14/2013 04/07/2016 Supervision of normal first 09/13/2013 04/07/2016 Post-dates 09/13/2013 016 Immunizations Name Administration Dates Next Due Influenza, IIV4 03/28/2013 Tdap 06/12/2013 Family History Medical History Relation Name Comments Cancer Father Alzheimer's disease Maternal Grandfather Cancer Maternal Grandfather Stroke Maternal Grandfather Heart Disease Maternal Grandmother Osteoporosis Maternal Grandmother Stroke Maternal Grandmother Heart Disease Mother Alzheimer's disease Paternal Grandfather Cancer Paternal Grandfather Relation Name Status Comments Father Maternal Grandfather Maternal Grandmother Mother Paternal Grandfather Social History Tobacco Use Types Packs/Day Years Used Date Smoking Tobacco: Never Smokeless Tobacco: Never Tobacco Cessation:Counseling Given: No Alcohol Use Standard Drinks/Week Comments No 0 (1 standard drink = 0.6 oz pur e alcohol) Comments No Sex and Gender Information Value Date Recorded Sex Assigned at Not on file Legal Sex Female 6:31 AM RADIO NEWS ANCHOR Gender Identity Not on file Sexual Orientation Not on file 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4 C (97.6 F) 09/19/2020 5:57 PM CDT Respiratory Rate 20 09/19/2020 5:57 PM CDT Oxygen Saturation 99% 09/19/2020 7:45 PM CDT Inhaled Oxygen Concentration - - Weight 64.9 kg (143 lb) 09/19/2020 5:57 PM CDT Height 167.6 cm (5' 6) 09/19/2020 5:57 PM CDT Body Mass Index 23.08 09/19/2020 5:57 PM CDT Plan of Treatment Not on file Insurance [facility] CARLINE MUNOZ Advance Directives * Full Code (Latest Code Status on File) Date Activated Date Inactivated Comments 05/16/2019 12:13 PM 05/19/2019 2:03 PM * Full Code Date Activated Date Inactivated Comments 04/08/2016 5:01 AM 04/09/2016 4:52 PM * Full Code Date Activated Date Inactivated Comments 04/07/2016 7:33 PM 04/08/2016 5:01 AM * Full Code Date Activated Date Inactivated Comments 04/07/2016 3:28 PM 04/07/2016 7:33 PM * Full Code Date Activated Date Inactivated Comments 09/14/2013 11:18 PM 09/16/2013 3:51 PM Care Teams Cardiac Care Nurse Relationship Specialty Start Date End Date Herminio Jovel MD [address] [place] [address]778 PCP - General Family Practice 11/30/16
--- OUTSIDE RECORDS SUMMARY | 2024-07-30 21:16 | XMS_ITS | Encounter Summary ---
Author Organization [facility] Address [address] [place] [address] Care Team Providers Care Dishing Machine Operator Name Role Phone Herminio Jovel MD Primary Care Provider Herminio Jovel MD Unavailable Hiwot [place] APRN CASTER INVESTMENT CASTING Unavailable [phone] Herminio Jovel MD Unavailable Corina Manzo PA-C Unavailable Lorie Gayle GASTROENTEROLOGY TECHNICIAN CASTER INVESTMENT CASTING Unavailable [phone] Rosemary Huynh GASTROENTEROLOGY TECHNICIAN CASTER INVESTMENT CASTING Unavailable + Hiwot [place] APRN CASTER INVESTMENT CASTING Unavailable Herminio Jovel MD Unavailable Rosemary Huynh GASTROENTEROLOGY TECHNICIAN CASTER INVESTMENT CASTING Unavailable + Handy Rebollar MD Unavailable [phone] Vibha Carrington MD Unavailable My Perez [facility] Unavailable Reason for Visit * Reason Onset Date Comments Referral 10/20/2018 New eval Encounter Details Date Type Department Care Team (Late st Contact Info) Description 10/20/2018 Telephone [facility] Pain Management [place] [id number] [place] [address] [address] [place], [place] [id number] Pain Management Program, [facility] Referral (Bipin collins ) Social History Tobacco Use Types Packs/Day Years Used Date Smoking Tobacco: Never Smokeless Tobacco: Never Alcohol Use Standard Drinks/Week Comments No 0 (1 standard drink = 0.6 oz pur e alcohol) PHQ-2 Answer Date Recorded PHQ-2 Score 0 06/14/2018 Comments No Sex and Gender Information Value Date Recorded Sex Assigned at Female 06/23/2021 7:41 PM TEAMSITE DEVELOPER Legal Sex Female 3:16 AM TEAMSITE DEVELOPER Gender Identity Female 06/23/2021 7:41 PM TEAMSITE DEVELOPER Sexual Orientation Straight 06/23/2021 7: 41 PM TEAMSITE DEVELOPER Occupation Industry Job Start Date Job End Date Not on file Not on file Not on file Not on file documented as of this encounter Miscellaneous Notes * Telephone Encounter - Cayla Arndt - 10/20/2018 1:16 PM CDT Talked to patient, will be calling back later to set up an appointment informed number to call. Cayla Arndt Painter Helper [facility] documented in this encounter Plan of Treatment Not on file documented as of this encounter Visit Diagnoses Not on filedocumented in this encounter Additional Health Concerns Assessment Noted Time PHQ-9 Depression Total Score: 1 09/09/19 19 4:37 PM CDT documented as of this encounter Care Teams Dishing Machine Operator Relationship Specialty Start Date End Date Herminio Jovel MD PCP - General Family Practice 11/08/13 Herminio Jovel MD [address] [place] [address]295 Assigned PCP 06/27/17 11/26/18 Hiwot [place] APRN CASTER INVESTMENT CASTING [address] [place] [address]15 Assigned PCP 11/27/18 09/09/19 Herminio Jovel MD [address] [place] [address], [place] [address] Assigned PCP 09/10/19 10/07/19 Corina Manzo PA-C [address] [place] [address], [place] [address] Assigned PCP 10/08/19 03/16/20 Lorie Gayle, GASTROENTEROLOGY TECHNICIAN CASTER INVESTMENT CASTING [address] [place] [address], [place] [address] Assigned PCP 03/17/20 05/11/20 Rosemary Huynh, GASTROENTEROLOGY TECHNICIAN CASTER INVESTMENT CASTING [address] [place] [address], [place] [address] Assigned PCP 05/12/20 05/10/21 Hiwot [place] GASTROENTEROLOGY TECHNICIAN CASTER INVESTMENT CASTING [address] [place] [address], [place] [address] Assigned PCP 05/11/21 06/14/21 Herminio Jovel MD [address] [place] [address], [place] [address] Assigned PCP 06/29/21 04/28/24 Rosemary Huynh, GASTROENTEROLOGY TECHNICIAN CASTER INVESTMENT CASTING [address] [place] [address], [place] [address] Assigned PCP 06/15/21 06/28/21 Handy Rebollar MD [facility] PERC[facility] PAIN MANAGEMENT [address] [facility] [address] [place] [address] Pain Medicine 02/09/23 [place] [address] [place] [address] Assigned PCP 04/29/24 My [place] CNM [address] 7349[address] Assigned OBGYN Provider 04/29/24 documented as of this encounter
--- OUTSIDE RECORDS SUMMARY | 2024-07-30 21:16 | XMS_ITS | Encounter Summary ---
Author Organization [facility] Address [address] [place] [address]. [place] [address] Care Team Providers Care Manager Heavy Equipment Name Role Phone Herminio Jovel MD Primary Care Provider [phone] Handy Rebollar MD Unavailable [phone] Vibha Carrington MD Unavailable My [facility] Unavailable Reason for Visit * Reason Onset Date Comments Refill Request 07/27/2024 Encounter Details Date Type Department Care Team (Late st Contact Info) Description 07/27/2024 Amara Womack [address] [phone] Herminio Jovel MD [address] [place] [address] [id number] Refill Request Social History Tobacco Use Types [...] Sex Assigned at Female 06/23/2021 7:41 PM CUSTOMER SUPPORT ASSISTANT Legal Sex Female 3:16 AM CUSTOMER SUPPORT ASSISTANT Gender Identity Female 06/23/2021 7:41 PM CUSTOMER SUPPORT ASSISTANT Sexual Orientation Straight 06/23/2021 7: 41 PM CUSTOMER SUPPORT ASSISTANT Occupation Industry Job Start Date Job End Date Not on file Not on file Not on file Not on file documented as of this encounter Miscellaneous Notes * Telephone Encounter - Herminio Jovel MD - 07/27/2024 3:56 PM CST Medication sent - due for medication check appointment in the next 1 month Okay to use next day, same day, next week, OB, or virtual release slots (all 20 minute appointments) (otherwise virtual visit slots can be used but need to be scheduled for 40 minutes and that is okay too). Last visit in this dept: 04/11/2024 Last visit -this provider: 04/14/2024 Next visit in this dept: Future Appointments 07/27/2024 - 01/23/2025 None Health Maintenance Topic Date Due ADVANCE CARE PLANNING Never done YEARLY PREVENTIVE VISIT 01/13/2005 HPV IMMUNIZATION (3 - 3-dose series) 05/06/2010 URINE DRUG SCREEN 06/11/2023 ANNUAL REVIEW OF HM ORDERS 11/20/2023 INFLUENZA VACCINE (1) 02/06/2024 PHQ-2 (once per calendar year) 2024 COLPOSCOPY 07/21/2024 DTAP/TDAP/TD IMMUNIZATION (10 - Td or Tdap) 01/22/2026 HPV TEST 04/21/2029 PAP 04/21/2029 ZOSTER IMMUNIZATION (1 of 2) 09/13/2039 MENINGITIS IMMUNIZATION Completed HEPATITIS B IMMUNIZATION Completed Pneumococcal Vaccine: Pediatrics (0 to 5 Years) and At-Risk Patients (6 to 49 Years) Aged Out HEPATITIS C SCREENING Discontinued HIV SCREENING Discontinued COVID-19 Vaccine Discontinued CSA -- Patient Level: CSA: None found at the patient level. OMER SUPPORT ASSISTANT documented in this encounter Plan of Treatment Not on file documented as of this encounter Visit Diagnoses Diagnosis ADHD (attention deficit hyperactivity disorder), combined type Attention deficit disorder with hyperactivity documented in this encounter Additional Health Concerns Assessment Noted Time PHQ-9 Depression Total Score: 8 06/26/19 22 8:35 AM CUSTOMER SUPPORT ASSISTANT documented as of this encounter Care Teams Manager Heavy Equipment Relationship Specialty Start Date End Date Herminio Jovel MD PCP - General Family Practice 11/08/13 Handy Rebollar MD CHAR PERCISION PAIN MANAGEMENT [address] [facility] [address] [place], [place] [phone] Pain Medicine 02/09/23 [place] [address] [place] [address] Assigned PCP 04/29/24 My [place] CNM [address] [facility] [address] [place] [address] Assigned OBGYN Provider 04/29/24 documented as of this encounter
--- OUTSIDE RECORDS SUMMARY | 2024-07-30 21:16 | XMS_ITS | Encounter Summary ---
Author Organization [facility] Address [address] [place] [address] Care Team Providers Care Call Center Rn Name Role Phone Herminio Jovel MD Primary Care Provider [phone] Herminio Jovel MD Unavailable Hiwot Scott APRN CARTRIDGE LOADER Unavailable Herminio Jovel MD Unavailable Corina ManzoC Unavailable Lorie Gayle SANDER OPERATOR CARTRIDGE LOADER Unavailable [phone] Rosemary Huynh SANDER OPERATOR CARTRIDGE LOADER Unavailable + Hiwot Scott SANDER OPERATOR CARTRIDGE LOADER Unavailable Herminio Jovel MD Unavailable Rosemary Huynh SANDER OPERATOR CARTRIDGE LOADER Unavailable + Handy Rebollar MD Unavailable [phone] Vibha Carrington MD Unavailable My Perez [facility] Unavailable [phone] Reason for Referral * Referral not Required (Routine) - Closed Specialty Diagnoses / Procedures Referred By Contac t Referred To Contact Diagnoses Chronic low back pain, unspecified back pain laterality, with sciatica presence unspecified Lumbago Herminio Jovel MD Phone: tel: fax: [place] [facility] [address] [address] Phone: tel: fax: Referral ID Status Reason Start Date Expiration Date Visits Re quested Visits Authorized [id number] Closed 10/19/2018 10/19/2019 1 1 Comments Your provider has referred you to: [facility]: [facility] - Reason for Referral: Evaluation for comprehensive services- patients will be evaluated if appropriate for comprehensive service including medication changes, procedures, pain psychology, and pain physical therapy. While involved with comprehensive services, pain providers will work with referring provider/PCP to stabilize appropriate medication management, with long-term plan of transition of prescribing back to referring provider/PCP upon completion of comprehensive services. Please complete the following questions: Do you have any specific questions for the pain specialist? No Are there any red flags that may impact the assessment or management of the patient? None What is your diagnosis for the patient's pain? Patient Active Problem List: Other acne iamLUMBAGO Chronic low back pain CARDIOVASCULAR SCREENING; LDL GOAL LESS THAN 160 Insomnia, unspecified type For any questions, contact the [facility] at . ANY DIAGNOSTIC TESTS THAT ARE NOT IN EPIC SHOULD BE SENT TO THE PAIN CENTER REGARDING OPIOID MEDICATIONS: The discussion of opioids management, appropriateness of therapy, and dosing will be discussed in patients being seen for evaluation. The pain management clinics are not long-term prescribing clinics, with transition of prescribing of medications ultimately going back to the referring provider/PCP. If prescribing is taken over at the pain clinic, it is in actively involved patients whom are appropriate for opioids, urine drug screening is completed, and long- term prescribing plan has been determined. Therefore, we will not be automatically taking over prescribing at the patient's first visit. Is this agreeable to you? agrees. Please be aware that coverage of these services is subject to the terms and limitations of your health insurance plan. Call member services at your health plan with any benefit or coverage questions. Please bring the following with you to your appointment: (1) Any X-Rays, CTs or MRIs which have been performed. Contact the facility where they were done to arrange for hop picker prior to your scheduled appointment. (2) List of current medications (3) This referral request (4) Any documents/labs given to you for this referral Reason for Visit * Reason Onset Date Comments MyChart Communication 10/17/2018 Encounter Details Date Type Department Care Team ([facility] st Contact Info) Description 10/17/2018 MyC Medical Advice [address] [phone] Herminio Jovel MD [address] [place] [address] MyChart Communication Social History Tobacco Use Types Packs/Day Years Used Date Smoking Tobacco: Never Smokeless Tobacco: Never Alcohol Use Standard Drinks/Week Comments No 0 (1 standard drink = 0.6 oz pur e alcohol) PHQ-2 Answer Date Recorded PHQ-2 Score 0 06/14/2018 Comments No Sex and Gender Information Value Date Recorded Sex Assigned at Female 06/23/2021 7:41 PM DAY CARE CENTER DIRECTOR Legal Sex Female 3:16 AM DAY CARE CENTER DIRECTOR Gender Identity Female 06/23/2021 7:41 PM DAY CARE CENTER DIRECTOR Sexual Orientation Straight 06/23/2021 7: 41 PM DAY CARE CENTER DIRECTOR Occupation Industry Job Start Date Job End Date Not on file Not on file Not on file Not on file documented as of this encounter Miscellaneous Notes * Telephone Encounter - Jania Bennett RN - 10/19/2018 9:19 AM CDT [facility] at Yes they do Rhizotomies. Placed referral and sent mychart to alert pt. Milagros Bennett RN [place] Triage * Telephone Encounter - Herminio Jovel MD - 10/19/2018 9:14 AM CDT MyChart message sent to make sure what she means by RFs procedure. Once message is returned then please call [facility] and see if they do that procedure or if they can tell use where they refer to todo that procedure. * Telephone Encounter - Herminio Jovel MD - 10/17/2018 10:53 PM CDT I am okay for a pain clinic referral - does she know what clinic that her insurance does cover procedures at? Okay for a referral to what clinic is covered. * Telephone Encounter - Sahra Cook RN - 10/17/2018 6:46 PM CDT Routing to PCP for further review/recommendations/orders. Referral pended Sahra Cook RN [place] Triage * Telephone Encounter - Sahra Cook RN - 10/17/2018 4:14 PM CDT [facility] Message sent Awaiting response Sahra Cook RN [place] Triage documented in this encounter Plan of Treatment Scheduled Referrals Name Type Priority Associated Diagnoses Orde r Schedule PAIN MANAGEMENT REFERRAL Referral Routine Chronic low back pain iamLUMBAGO 1 Occurrences starting 10/19/2018 until 10/18/2019 documented as of this encounter Visit Diagnoses Diagnosis Chronic low back pain, unspecified back pain laterality, with sciatica presence unspecified- Primary iamLUMBAGO Lumbago documented in this encounter Additional Health Concerns Assessment Noted Time PHQ-9 Depression Total Score: 1 09/09/19 19 4:37 PM CDT documented as of this encounter Care Teams Call Center Rn Relationship Specialty Start Date End Date Herminio Jovel MD PCP - General Family Practice 11/08/13 Herminio Jovel MD [address] [place] [address], [place] [address] Assigned PCP 06/27/17 11/26/18 Hiwot Scott APRN CARTRIDGE LOADER [address] [place] [address], [place] [address] Assigned PCP 11/27/18 09/09/19 Herminio Jovel MD [address] [place] [address], [place] [address] Assigned PCP 09/10/19 10/07/19 Corina Manzo PA-C [address] [place] [address], [place] [address] Assigned PCP 10/08/19 03/16/20 Lorie Gayle APRN CARTRIDGE LOADER [address] [place] [address], [place] [address] Assigned PCP 03/17/20 05/11/20 Rosemary Huynh APRN CARTRIDGE LOADER [address] [place] [address], [place] [address] Assigned PCP 05/12/20 05/10/21 Hiwot Scott APRN CARTRIDGE LOADER [address] [place] [address], [place] [address] Assigned PCP 05/11/21 06/14/21 Herminio Jovel MD [address] [place] [address], [place] [address] Assigned PCP 06/29/21 04/28/24 Rosemary Huynh APRN CARTRIDGE LOADER [address] [place] [address] Assigned PCP 06/15/21 06/28/21 Hanyd Rebollar MD [facility] [address] [facility] [address] [place] [address] Pain Medicine 02/09/23 [place] [address] [place] [address] Assigned PCP 04/29/24 My Perez CN[facility] [address] [place], [place] [address] Assigned OBGYN Provider 04/29/24 documented as of this encounter
--- OUTSIDE RECORDS SUMMARY | 2024-07-30 21:17 | XMS_ITS | Encounter Summary ---
Author Organization [facility] Address [address] [place] [address] Care Team Providers Care Doll Wig Maker Name Role Phone Herminio Jovel MD Primary Care Provider [phone] Herminio Jovel MD Unavailable Handy Rebollar MD Unavailable [phone] Vibha Carrington MD Unavailable My Perez [facility] Unavailable [phone] Encounter Details Date Type Department Care Team (Late st Contact Info) Description 07/23/2023 MyC Medical Advice [address] [phone] Herminio Jovel MD [address] [place] [phone] Social History Tobacco Use Types Packs/Day Years Used Date Smoking Tobacco: Never Smokeless Tobacco: Never Alcohol Use Standard Drinks/Week Comments No 0 (1 standard drink = 0.6 oz pur e alcohol) PHQ-2 Answer Date Recorded PHQ-2 Score 0 07/22/2023 Adolescent Education Answer Date Record ed Getting School Help Needed Not on file 03/10 Comments No Sex and Gender Information Value Date Recorded Sex Assigned at Female 06/23/2021 7:41 PM PRINTED CIRCUIT BOARDS INSPECTOR Legal Sex Female 3:16 AM PRINTED CIRCUIT BOARDS INSPECTOR Gender Identity Female 06/23/2021 7:41 PM PRINTED CIRCUIT BOARDS INSPECTOR Sexual Orientation Straight 06/23/2021 7: 41 PM PRINTED CIRCUIT BOARDS INSPECTOR Occupation Industry Job Start Date Job End Date Not on file Not on file Not on file Not on file documented as of this encounter Plan of Treatment Not on file documented as of this encounter Visit Diagnoses Not on filedocumented in this encounter Additional Health Concerns Assessment Noted Time PHQ-9 Depression Total Score: 8 06/26/19 8:35 AM PRINTED CIRCUIT BOARDS INSPECTOR documented as of this encounter Care Teams Doll Wig Maker Relationship Specialty Start Date End Date Herminio Jovel MD PCP - General Family Practice 11/08/13 [place] [address] [place] [address] Assigned PCP 06/29/21 04/28/24 Handy Rebollar MD [facility] [address] [facility] [address] [place] [address] Pain Medicine 02/09/23 [place] [address] [place] [address] Assigned PCP 04/29/24 My Perez [facility] [address] [place], [place] [address] Assigned OBGYN Provider 04/29/24 documented as of this encounter
--- OUTSIDE RECORDS SUMMARY | 2024-07-30 21:17 | XMS_ITS | Encounter Summary ---
Author Organization [facility] Address [address] [place] [address] Care Team Providers Care Harness Tier Name Role Phone Herminio Jovel MD Primary Care Provider Herminio Jovel MD Unavailable [phone] Handy Rebollar MD Unavailable [phone] Vibha Carrington MD Unavailable My Perez [facility] Unavailable Encounter Details Date Type Department Care Team (Late st Contact Info) Description 07/22/2022 MyC Medical Advice [address] [phone] Herminio Jovel MD [address] [place] [id number] Social History Tobacco Use Types Packs/Day Years Used Date Smoking Tobacco: Never Smokeless Tobacco: Never Alcohol Use Standard Drinks/Week Comments No 0 (1 standard drink = 0.6 oz pur e alcohol) PHQ-2 Answer Date Recorded PHQ-2 Score 1 06/26/2021 Comments No Sex and Gender Information Value Date Recorded Sex Assigned at Female 06/23/2021 7:41 PM TOW BOAT CAPTAIN Legal Sex Female 3:16 AM TOW BOAT CAPTAIN Gender Identity Female 06/23/2021 7:41 PM TOW BOAT CAPTAIN Sexual Orientation Straight 06/23/2021 7: 41 PM TOW BOAT CAPTAIN Occupation Industry Job Start Date Job End Date Not on file Not on file Not on file Not on file documented as of this encounter Plan of Treatment Not on file documented as of this encounter Visit Diagnoses Not on filedocumented in this encounter Additional Health Concerns Assessment Noted Time PHQ-9 Depression Total Score: 8 06/26/19 22 8:35 AM TOW BOAT CAPTAIN documented as of this encounter Care Teams Harness Tier Relationship Specialty Start Date End Date Herminio Jovel MD PCP - General Family Practice 11/08/13 Herminio Jovel MD [address] [place] [address] Assigned PCP 06/29/21 04/28/24 Handy Rebollar MD [facility] [address] [place] [address] Pain Medicine 02/09/23 [place] [address] [place] [address] Assigned PCP 04/29/24 My [facility] [address] [place] [address] Assigned OBGYN Provider 04/29/24 documented as of this encounter
--- OUTSIDE RECORDS SUMMARY | 2024-07-30 21:17 | XMS_ITS | Encounter Summary ---
Author Organization [facility] Address [address] [place] [address] Care Team Providers Care Certified Athletic Trainer Name Role Phone Herminio Jovel MD Primary Care Provider Herminio Jovel MD Unavailable [phone] Handy Rebollar MD Unavailable [phone] Vibha Carrington MD Unavailable My Perez [facility] Unavailable Reason for Visit * Reason Onset Date Comments Refill Request 06/11/2023 Encounter Details Date Type Department Care Team ([facility] st Contact Info) Description 06/11/2023 MyC [place] [address] [phone] Herminio Jovel MD [address] [place] [phone] Refill Request Social History Tobacco Use Types Packs/Day Years Used Date Smoking Tobacco: Never Smokeless Tobacco: Never Alcohol Use Standard Drinks/Week Comments No 0 (1 standard drink = 0.6 oz pur e alcohol) PHQ-2 Answer Date Recorded PHQ-2 Score 0 11/19/2022 Adolescent Education Answer Date Record ed Getting School Help Needed Not on file 03/10 Comments No Sex and Gender Information Value Date Recorded Sex Assigned at Female 06/23/2021 7:41 PM SEO INTERN Legal Sex Female 3:16 AM SEO INTERN Gender Identity Female 06/23/2021 7:41 PM SEO INTERN Sexual Orientation Straight 06/23/2021 7: 41 PM SEO INTERN Occupation Industry Job Start Date Job End Date Not on file Not on file Not on file Not on file documented as of this encounter Miscellaneous Notes * Telephone Encounter - Trisha Fiore Lucy - 06/14/2023 11:28 AM CST [employer] message sent to patient to notify due for med check in next 1 to 2 months and to please schedule. INTERN * Telephone Encounter - Herminio Jovel MD - 06/11/2023 4:36 PM CST Due for med check appointment, virtual or in person is okay, refill sent for now. Please schedule within the next month or 2, Last visit in this dept: 11/19/2022 Last visit -this provider: 05/13/2023 Next visit in this dept: Future Appointments 06/11/2023 - 12/08/2023 None Health Maintenance Topic Date Due ADVANCE CARE PLANNING Never done YEARLY PREVENTIVE VISIT 01/13/2005 HPV IMMUNIZATION (3 - 3-dose series) 05/06/2010 PAP 09/08/2021 INFLUENZA VACCINE (1) 02/05/2023 PHQ-2 (once per calendar year) 2023 URINE DRUG SCREEN 06/11/2023 ANNUAL REVIEW OF HM ORDERS 11/20/2023 DTAP/TDAP/TD IMMUNIZATION (10 - Td or Tdap) 01/22/2026 IPV IMMUNIZATION Completed MENINGITIS IMMUNIZATION Completed HEPATITIS B IMMUNIZATION Completed Pneumococcal Vaccine: Pediatrics (0 to 5 Years) and At-Risk Patients (6 to 64 Years) Aged Out RSV MONOCLONAL ANTIBODY Aged Out HEPATITIS C SCREENING Discontinued HIV SCREENING Discontinued COVID-19 Vaccine Discontinued CSA -- Patient Level: CSA: None found at the patient level. INTERN * Telephone Encounter - Augustina Dobson RN - 06/11/2023 3:35 PM CST Patient calls to request refill be sent today as she will be out of the Adderall 10 mg before the weekend and patient would like this sent to [facility] today (ask they are not open on Wednesday), otherwise patient requesting to be sent to [facility] in [place] [address]. Thank you, Sen Dobson, hospital chief financial officer [facility] 3:37 PM 06/11/2023 INTERN documented in this encounter Plan of Treatment Not on file documented as of this encounter Visit Diagnoses Diagnosis Panic attack Panic disorder without agoraphobia ADHD (attention deficit hyperactivity disorder), combined type Attention deficit disorder with hyperactivity documented in this encounter Additional Health Concerns Assessment Noted Time PHQ-9 Depression Total Score: 8 06/26/19 8:35 AM SEO INTERN documented as of this encounter Care Teams Certified Athletic Trainer Relationship Specialty Start Date End Date Herminio Jovel MD PCP - General Family Practice 11/08/13 Herminio Jovel MD [address] [place], [place] [address] Assigned PCP 06/29/21 04/28/24 Handy Rebollar MD [facility] [address] [facility] [address] [place], [place] [address] Pain Medicine 02/09/23 [place] [address] [place] [address] Assigned PCP 04/29/24 My [facility] [address] [place] [address] Assigned OBGYN Provider 04/29/24 documented as of this encounter
--- OUTSIDE RECORDS SUMMARY | 2024-07-30 21:17 | XMS_ITS | Encounter Summary ---
Author Organization [facility] Address [address] [facility] [place] [address] Care Team Providers Care Hospital Director Name Role Phone Herminio Jovel MD Primary Care Provider [phone] Herminio Jovel MD Unavailable [phone] Handy Rebollar MD Unavailable [phone] Vibha Carrington MD Unavailable My Perez [facility] Unavailable [phone] Encounter Details Date Type Department Care Team (Late st Contact Info) Description 02/10/2024 MyC Medical Advice Initial Department Refugio Méndez Social History Tobacco Use Types Packs/Day Years [...] motionally safe where you currently live? Yes 08/16/2023 Within the past 12 months, h ave you been hit, slapped, kicked or otherwise physically hurt by someone? No 08/16/2023 Within the past 12 months, h ave you been humiliated or emotionally abused in other ways by your partner or ex-partner? No 08/16/2023 Comments No Sex and Gender Information Value Date Recorded Sex Assigned at Female 06/23/2021 7:41 PM COUNSELOR MARRIAGE AND FAMILY Legal Sex Female 3:16 AM COUNSELOR MARRIAGE AND FAMILY Gender Identity Female 06/23/2021 7:41 PM COUNSELOR MARRIAGE AND FAMILY Sexual Orientation Straight 06/23/2021 7: 41 PM COUNSELOR MARRIAGE AND FAMILY Occupation Industry Job Start Date Job End Date Not on file Not on file Not on file Not on file documented as of this encounter Plan of Treatment Not on file documented as of this encounter Visit Diagnoses Not on filedocumented in this encounter Additional Health Concerns Assessment Noted Time PHQ-9 Depression Total Score: 8 06/26/19 8:35 AM COUNSELOR MARRIAGE AND FAMILY documented as of this encounter Care Teams Hospital Director Relationship Specialty Start Date End Date Herminio Jovel MD PCP - General Family Practice 11/08/13 Herminio Jovel MD [address] [place] [address] Assigned PCP 06/29/21 04/28/24 Handy Rebollar MD [facility]GEMENT [address] [address] [place], [place] [address] Pain Medicine 02/09/23 [place] [address] [place] [address] Assigned PCP 04/29/24 My Perez [facility] [address] [place] [address] Assigned OBGYN Provider 04/29/24 documented as of this encounter
--- OUTSIDE RECORDS SUMMARY | 2024-07-30 21:17 | XMS_ITS | Encounter Summary ---
Author Organization [facility] Address [address] [place] [address] Care Team Providers Care Proof Load Mechanic Name Role Phone Herminio Jovel MD Primary Care Provider Herminio Jovel MD Unavailable Handy Rebollar MD Unavailable [phone] Vibha Carrington MD Unavailable My Perez [facility] Unavailable [phone] Encounter Details Date Type Department Care Team (Late st Contact Info) Description 02/22/2024 MyC Medical Advice [address] [place] [phone] Trisha Fiore Social History Tobacco Use Types Packs/Day Years [...] Sex Assigned at Female 06/23/2021 7:41 PM OLD COIN DEALER Legal Sex Female 3:16 AM OLD COIN DEALER Gender Identity Female 06/23/2021 7:41 PM OLD COIN DEALER Sexual Orientation Straight 06/23/2021 7: 41 PM OLD COIN DEALER Occupation Industry Job Start Date Job End Date Not on file Not on file Not on file Not on file documented as of this encounter Plan of Treatment Not on file documented as of this encounter Visit Diagnoses Not on filedocumented in this encounter Additional Health Concerns Assessment Noted Time PHQ-9 Depression Total Score: 8 06/26/19 8:35 AM OLD COIN DEALER documented as of this encounter Care Teams Proof Load Mechanic Relationship Specialty Start Date End Date Herminio Jovel MD PCP - General Family Practice 11/08/13 Herminio Jovel MD [address] [place] [address] Assigned PCP 06/29/21 04/28/24 Handy Rebollar MD [facility] [address] [facility] [address] [place] [address] Pain Medicine 02/09/23 [place] [address] [place] [address] Assigned PCP 04/29/24 My Perez [facility] [address] [place], [place] [address] Assigned OBGYN Provider 04/29/24 documented as of this encounter
--- OUTSIDE RECORDS SUMMARY | 2024-07-30 21:17 | XMS_ITS | Encounter Summary ---
Author Organization [facility] Address [address] [place] [address] Care Team Providers Care Escalator Mechanic Name Role Phone Herminio Jovel MD Primary Care Provider [phone] Herminio Jovel MD Unavailable Herminio Jovel MD Unavailable Hiwot Scott WASH HOUSE WORKER FREELANCE DISPLAYER Unavailable Herminio Jovel MD Unavailable Corina Manzo PA-C Unavailable [phone] Lorie Gayle WASH HOUSE WORKER FREELANCE DISPLAYER Unavailable [phone] Rosemary Huynh WASH HOUSE WORKER FREELANCE DISPLAYER Unavailable + Hiwot Scott APRN FREELANCE DISPLAYER Unavailable Herminio Jovel MD Unavailable Rosemary Huynh WASH HOUSE WORKER FREELANCE DISPLAYER Unavailable + Handy Rebollar MD Unavailable [phone] Vibha Carrington MD Unavailable My Perez [facility] Unavailable Reason for Visit * Reason Onset Date Comments Refill Request 02/24/2018 zolpidem (AMBIEN ) 5 MG tablet sent to the pharmacy attached to [facility] please call when ready. Encounter Details Date Type Department Care Team (Late st Contact Info) Description 02/24/[address] [place] [phone] [place] [address] [place] [address] [place] [id number] Refill Request (zolpidem (AMBIEN) 5 MG tablet sent to the pharmacy attached to [facility] please call when ready.) Social History Tobacco Use Types Packs/Day Years Used Date Smoking Tobacco: Never Smokeless Tobacco: Never Alcohol Use Standard Drinks/Week Comments No 0 (1 standard drink = 0.6 oz pur e alcohol) Comments No Sex and Gender Information Value Date Recorded Sex Assigned at Female 06/23/2021 7:41 PM CREATIVE WRITING PROFESSOR Legal Sex Female 3:16 AM CREATIVE WRITING PROFESSOR Gender Identity Female 06/23/2021 7:41 PM CREATIVE WRITING PROFESSOR Sexual Orientation Straight 06/23/2021 7: 41 PM CREATIVE WRITING PROFESSOR Occupation Industry Job Start Date Job End Date Not on file Not on file Not on file Not on file documented as of this encounter Miscellaneous Notes * Telephone Encounter - Fuad David - 02/24/2018 1:59 PM CDT Requested Prescriptions Pending Prescriptions Disp Refills zolpidem (AMBIEN) 5 MG tablet Last Written Prescription Date: 12.26.17 Last Fill Quantity: 30, # refills: 1 Last Office Visit: 11/22/2017 Future Office Visit: Routing refill request to provider for review/approval because: Drug not on the [facility], [facility] or [facility] refill protocol or controlled substance * Telephone Encounter - Brigette Oliveira - 02/24/2018 1:14 PM CDT Reason for Call: Medication or medication refill: Do you use a [facility]? Name of the pharmacy and phone number for the current request: [facility] - [place], [place] - [address] [place] [address] Name of the medication requested: zolpidem (AMBIEN) 5 MG tablet Other request: Please send to the [facility] clinic and call when ready to be picked up please Can we leave a detailed message on this number? YES Phone number patient can be reached at: Cell number on file: Telephone Information: Best Time: anytime Call taken on 02/24/2018 at 1:15 PM by Brigette Oliveira documented in this encounter Plan of Treatment Not on file documented as of this encounter Visit Diagnoses Diagnosis Insomnia, unspecified type documented in this encounter Additional Health Concerns Assessment Noted Time PHQ-9 Depression Total Score: 3 06/22/19 18 10:26 AM CREATIVE WRITING PROFESSOR documented as of this encounter Care Teams Escalator Mechanic Relationship Specialty Start Date End Date Herminio Jovel MD PCP - General Family Practice 11/08/13 Herminio Jovel MD [address] [place] [address] PCP - Assigned PCP 06/27/17 08/09/18 Herminio Jovel MD [address] [place] [address] [phone] Assigned PCP 06/27/17 11/26/18 Hiwot Scott, WASH HOUSE WORKER FREELANCE DISPLAYER [address] [place] [address] Assigned PCP 11/27/18 09/09/19 Herminio Jovel MD [address] [place] [address] Assigned PCP 09/10/19 10/07/19 Corina Manzo PA-C [address] [place] [address] [id number] Assigned PCP 10/08/19 03/16/20 Lorie Gayle APRN FREELANCE DISPLAYER [address] [place] [address] Assigned PCP 03/17/20 05/11/20 Rosemary Huynh APRN FREELANCE DISPLAYER [address] [place] [address] Assigned PCP 05/12/20 05/10/21 Hiwot Scott APRN FREELANCE DISPLAYER [address] [place] [address] 99396 Assigned PCP 05/11/21 06/14/21 Herminio Jovel MD [address] [place] [address] Assigned PCP 06/29/21 04/28/24 Rosemary Huynh APRN FREELANCE DISPLAYER [address] [place] [address] Assigned PCP 06/15/21 06/28/21 Handy Rebollar MD [facility] [address] [facility] [address] [place] [address] Pain Medicine 02/09/23 [place] [address] [place] [address] Assigned PCP 04/29/24 My Perez CNM [address] [address] Assigned OBGYN Provider 04/29/24 documented as of this encounter
--- OUTSIDE RECORDS SUMMARY | 2024-07-30 21:17 | XMS_ITS | Encounter Summary ---
Author Organization [facility] Address [address] [place] [address] Care Team Providers Care Envelope Maker Name Role Phone Herminio Jovel MD Primary Care Provider [phone] Herminio Jovel MD Unavailable Handy Rebollar MD Unavailable [phone] Vibha Carrington MD Unavailable My Perez [facility] Unavailable [phone] Encounter Details Date Type Department Care Team (Late st Contact Info) Description 08/14/2022 MyC Medical Advice [address] [phone] Herminio Jovel MD [address] [place] [address] [phone] Social History Tobacco Use Types Packs/Day Years Used Date Smoking Tobacco: Never Smokeless Tobacco: Never Alcohol Use Standard Drinks/Week Comments No 0 (1 standard drink = 0.6 oz pur e alcohol) PHQ-2 Answer Date Recorded PHQ-2 Score 1 06/26/2021 Comments No Sex and Gender Information Value Date Recorded Sex Assigned at Female 06/23/2021 7:41 PM PLANT QUALITY MANAGER Legal Sex Female 3:16 AM PLANT QUALITY MANAGER Gender Identity Female 06/23/2021 7:41 PM PLANT QUALITY MANAGER Sexual Orientation Straight 06/23/2021 7: 41 PM PLANT QUALITY MANAGER Occupation Industry Job Start Date Job End Date Not on file Not on file Not on file Not on file documented as of this encounter Plan of Treatment Not on file documented as of this encounter Visit Diagnoses Not on filedocumented in this encounter Additional Health Concerns Assessment Noted Time PHQ-9 Depression Total Score: 8 06/26/19 22 8:35 AM PLANT QUALITY MANAGER documented as of this encounter Care Teams Envelope Maker Relationship Specialty Start Date End Date Herminio Jovel MD PCP - General Family Practice 11/08/13 Herminio Jovel MD [address] [place] [address] Assigned PCP 06/29/21 04/28/24 Handy Rebollar MD [facility] [address] [place] [address] Pain Medicine 02/09/23 [place] [address] [place] [address] Assigned PCP 04/29/24 My Perez CNM [address] [place] [address] Assigned OBGYN Provider 04/29/24 documented as of this encounter
--- OUTSIDE RECORDS SUMMARY | 2024-07-30 21:17 | XMS_ITS | Clinical Summary ---
Author Organization [facility] Address [address] [place] [address] Care Team Providers Care Security Support Analyst Name Role Phone Connie Jovel MD Primary Care Provider [phone] Source Comments You are receiving this document as you are listed as the primary care provider,follow-up provider, or the patient has been referred to you for consultation.This is in compliance with the Medicare andSt. [facility] Centercaid EHR Incentive Program,which states Providers who transition their patient to another setting of careor provider of care or refers their patient to another provider of care shouldprovide summary care record for each transition of care or referral. [employer] Allergies No known active allergies Medications Vit-Fe Fumarate-FA ( OR) Take by mouth. 01/24/2013 Active Doxylamine Succinate, Sleep, (UNISOM OR) Take by mouth. 11/26/2015 Active ferrous sulfate (FERROUS SULFATE) 325 (65 FE) MG tablet Take 325 mg by mouth daily (every 24 hours). 01/23/2016 Active docusate sodium (COLACE) 100 MG capsule Take 100 mg by mouth. 04/09/2016 Active ibuprofen (MOTRIN IB) 200 MG tablet Take 200-600 mg by mouth. 04/09/2016 Active cyclobenzaprine (FLEXERIL) 10 MG tablet Take 10 mg by mouth. 04/15/2016 Active ketorolac (TORADOL) 10 MG tablet 0 04/15/2016 Active oxyCODONE-acetam inophen (PERCOCET) 5-325 MG tablet Take 1 Tab by mouth every 6 hours as needed (for more severe pain.). 30 Tab 0 04/24/2016 Active TRINESSA, 28, 0.18/0.215/0.25 MG-35 MCG tablet TAKE 1 TABLET BY MOUTH DAILY 84 Tablet 05/13/2018 Active Active Problems Problem Noted Date Diagnosed Date Shortness of breath 05/03/2016 Overview (05/03/2016): Overview: negative evaluation in ED 03/22 Delivery normal 04/08/2016 Overview (05/03/2016): Overview: Nestor SOB (shortness of breath) 03/09/2016 Primary insomnia 03/22/2015 Overview (05/03/2016): Overview: Patient is followed by CONNIE JOVEL for ongoing prescription of AMBIEN for insomnia. All refills should be approved by this provider, or covering partner. Medication(s): ambien 10 mg . Maximum quantity per month: 30 Clinic visit frequency required: Q 6 months Controlled substance agreement on file: Yes Date(s): 08/05/12 Benzodiazepine use reviewed by psychiatry: No Last [facility] website verification: done on 02/20/15 [email or web address] Chronic low back pain 01/14/2009 Overview (05/03/2016): Overview: Patient is followed by CONNIE JOVEL for [...] Total Score(s): No flowsheet data found. Last [facility] website verification: done on 02/20/15 [email or web address] Acne 06/13/2004 Resolved Problems Problem Noted Date Diagnosed Date Resolved Date Other normal , not first 03/18/2016 06/24/2016 Supervision of normal first 02/27/2013 03/18/2016 Immunizations Immunization Administration Dates Next Due Influenza IIV4 (Quadrivalent) 0.5mL (22035) 03/07,04/03/2015,03/28/2013 TDAP (BOOSTRIX) 01/23/2016,06/12/2013 Family History Medical History Relation Name Comments Cancer Father Heart Disease Mother Alzheimer's Maternal Grandfather Cancer Maternal Grandfather Stroke Maternal Grandfather Diabetes Maternal Grandmother Heart Disease Maternal Grandmother Osteoporosis Maternal Grandmother Stroke Maternal Grandmother Alzheimer's Paternal Grandfather Cancer Paternal Grandfather Relation Name Status Comments Father Alive Mother Alive Maternal Grandfather Maternal Grandmother Alive Paternal Grandfather Paternal Grandmother Sister Alive Social History Tobacco Use Types Packs/Day Years Used Date Smoking Tobacco: Never Alcohol Use Standard Drinks/Week Comments No 0 (1 standard drink = 0.6 oz pur e alcohol) 2 glasses wine occasional Comments No Sex and Gender Information Value Date Recorded Sex Assigned at Not on file Legal Sex Female 5:56 AM CDT Gender Identity Not on file Sexual Orientation Not on file 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 Not on file Last Filed Vital Signs Vital Sign Reading Time Taken Comments Blood Pressure 105/75 05/04/2016 11:20 AM SAMPLE DISTRIBUTOR Pulse 111 05/04/2016 11:20 AM SAMPLE DISTRIBUTOR Temperature - - Respiratory Rate 16 05/04/2016 11:20 AM SAMPLE DISTRIBUTOR Oxygen Saturation 98% 11/26/2015 9:32 AM CDT Inhaled Oxygen Concentration - - Weight 68.1 kg (150 lb 1.9 oz) 04/24/2016 3:11 P M SAMPLE DISTRIBUTOR Height 170.2 cm (5' 7) 04/24/2016 3:11 PM SAMPLE DISTRIBUTOR Body Mass Index 23.51 04/24/2016 3:11 PM SAMPLE DISTRIBUTOR Plan of Treatment Health Maintenance Due Date Last Done Comments Hep C Screening (Preventive Services) 1989 Adult Preventive Visit 09/13/2007 HepB (1) 2008 Cervical Cancer Screening 09/05/2018 09/06/2015, COVID-19 Vaccine ( season) 2024 Influenza (#1) 2024 03/18/2016, 03/08, 03/28/2013 DTaP/Tdap/Td (8 - Tdap) 01/22/2026 01/23/20 16, 06/12/2013, 12/13/2001, Additional history exists Zoster/Shingles (1 of 2) 09/13/2039 IPV (Polio) Completed 12/14/1994, 02/1991, 02/05/1990, Additional history exists MCV4 Completed 01/26/2008 HIV Screening (Preventive Services) Completed 09/06/2015, 01/24/2013 HPV Vaccine Aged Out No longer eligi ble based on patient's age to complete this topic HepA Aged Out No longer eligi ble based on patient's age to complete this topic Hib Aged Out No longer eligi ble based on patient's age to complete this topic Meningococcal B Aged Out No longer el igible based on patient's age to complete this topic Pneumococcal Aged Out No longer eligi ble based on patient's age to complete this topic Procedures Procedure Name Priority Date/Time Associated Diagnosis Comments ANATOMICAL PATH LIQUID BASED Routine 09/06/2015 10:10 AM CDT HIV-1 P24 AND HIV-1/HIV-2 ANTIBODIES Routine 09/06/2015 10:02 AM CDT Screening examination for venereal disease from Last 3 Months or Most Recently Relevant to Health Maintenance Results * Pap Smear (09/06/2015 10:10 AM CDT) 09/06/2015 10:1 0 AM CDT Narrative HP CONVERSION - 09/10/2015 3:05 PM CDT FINAL GYNECOLOGICAL CYTOLOGY REPORT Pathology #: [id number] Date Obtained: 09/06/2015 Date Received: 09/09/2015 INTERPRETATION/RESULTS: Negative for Intraepithelial Lesion or Malignancy. SPECIMEN ADEQUACY: Satisfactory for Evaluation. Endocervical cells/transformation zone component present. Verified on 09/10/2015 by MAGDIEL NOEL(ASCP) (electronic signature) CLINICAL NOTES: Abnormal bleeding: No, LMP: 06/28/15, Menstrual status: , Current form of therapy: None apply LIQUID BASED PAP SMEAR SPECIMEN TYPE: ROUTINE CERVICAL PAP TEST PLEASE NOTE: The pap smear is a screening test designed to aid in the detection of cervical cancer and its precursor lesions. It is not a diagnostic procedure and should not be used as the sole means of detecting cervical cancer. Both false-positive and false-negative reports may occur. Performed at [facility], [address] [place] [address] Transcriptions 07/15/2016 7:58 PM CSTNotes Recorded by Shruti Riley, ARCADIO on 09/11/2015 at 8:11 Jailyn Cabrales,I am writing to let you know that your PAP result is negative. This means that your test result was normal. No cancer or precancerous cells were seen.Based on current cervical cancer screening recommendations, your next PAP should be in 3 years. Continue to schedule your annual preventive exams for your overall health.If you have questions about cervical cancer screening or your test results, callCervical Cancer Screening and Management [phone], ARCADIO on behalf ofDr. Nancy Collazo, Medical DirectorFederal Correction Institution Hospital Cervical Cancer Screening and Management us Brigette Varghese MD LAB_1 Final Result Performing Organization Address City/[facility]/ZIP Co de Phone Number HP CONVERSION * HIV-1 P24 AND HIV-1/HIV-2 ANTIBODIES (09/06/2015 10:02 AM CDT) HIV-1 p24 Ag and HIV-1/HIV-2 Ab Nonreactive Non-React grupo HP CONVERSION 09/06/2015 10:0 2 AM CDT 09/06/2015 3:10 PM CDT Narrative HP CONVERSION - 09/06/2015 5:47 PM CDT Performed at [address] [address] CLIA number [id number] us Brigette Varghese MD LAB_1 Final Result Performing Organization Address City/[facility] Co de Phone Number HP CONVERSION from Last 3 Months or Most Recently Relevant to Health Maintenance Insurance [facility] Care Teams Security Support Analyst Relationship Specialty [place] [address] [place] [address] PCP - General 01/24/13
--- OUTSIDE RECORDS SUMMARY | 2024-07-30 21:17 | XMS_ITS | Encounter Summary ---
Author Organization [facility] Address [address] [place] [address] Care Team Providers Care Field Marketing Representative Name Role Phone Herminio Jovel MD Primary Care Provider [phone] Herminio Jovel MD Unavailable Handy Rebollar MD Unavailable [phone] Vibha Carrington MD Unavailable My Perez [facility] Unavailable Reason for Visit * Reason Onset Date Comments Refill Request 07/19/2023 Encounter Details Date Type Department Care Team ([facility] st Contact Info) Description 07/19/2023 MyC Finesse Womack [address] [phone] Herminio Jovel MD [address] [place] [address] [phone] Refill Request Social History Tobacco Use Types [...] Sex Assigned at Female 06/23/2021 7:41 PM SENIOR CYTOGENETICS LABORATORY DIRECTOR Legal Sex Female 3:16 AM SENIOR CYTOGENETICS LABORATORY DIRECTOR Gender Identity Female 06/23/2021 7:41 PM SENIOR CYTOGENETICS LABORATORY DIRECTOR Sexual Orientation Straight 06/23/2021 7: 41 PM SENIOR CYTOGENETICS LABORATORY DIRECTOR Occupation Industry Job Start Date Job End Date Not on file Not on file Not on file Not on file documented as of this encounter Miscellaneous Notes * Telephone Encounter - Trisha Fiore - 07/19/2023 3:30 PM CST InfoBasist message sent to patient to to notify to schedule appt. OR CYTOGENETICS LABORATORY DIRECTOR * Telephone Encounter - Herminio Jovel MD - 07/19/2023 12:43 PM CST Due for 6-month med check regarding ADHD medications (last seen 11/19/2022) virtual or in person visit is fine, please schedule. 1 refill sent for now. Okay to use same-day, next day, virtual release or virtual slots (do not use provider approval slot). Last visit in this dept: 11/19/2022 Last visit -this provider: 06/22/2023 Next visit in this dept: Future Appointments 07/19/2023 - 01/15/2024 Date Visit Type Length Department Provider 07/20/2023 10:00 AM NEXPLANON REMOVAL OR REPLACE 30 min FAMILY PRACTICE Vibha Carrington MD Location Instructions: [facility] is located at [address] [facility] about one mile east of the [facility] [address] exit off of [address]. To access the parking lot from [facility] [address], turn south onto [facility]. From [facility] [address], turn west onto [address], then north onto [facility]. Health Maintenance Topic Date Due ADVANCE CARE [...] CSA: None found at the patient level. OR CYTOGENETICS LABORATORY DIRECTOR documented in this encounter Plan of Treatment Not on file documented as of this encounter Visit Diagnoses Diagnosis ADHD (attention deficit hyperactivity disorder), combined type Attention deficit disorder with hyperactivity documented in this encounter Additional Health Concerns Assessment Noted Time PHQ-9 Depression Total Score: 8 06/26/19 22 8:35 AM SENIOR CYTOGENETICS LABORATORY DIRECTOR documented as of this encounter Care Teams Field Marketing Representative Relationship Specialty Start Date End Date Herminio Jovel MD PCP - General Family Practice 11/08/13 [place] [address] [place] [address] [id number] Assigned PCP 06/29/21 04/28/24 Handy Rebollar MD [facility] [address] [facility] [address] [place], [place] [phone] Pain Medicine 02/09/23 [place] [address] [place] [address] Assigned PCP 04/29/24 My Perez CNM [address] [place], [place] 639[address] Assigned OBGYN Provider 04/29/24 documented as of this encounter
--- OUTSIDE RECORDS SUMMARY | 2024-07-30 21:17 | XMS_ITS | Encounter Summary ---
Author Organization [facility] Address [address] [place] [address]. [place] [address] Care Team Providers Care Laboratory Equipment Installer Name Role Phone Herminio Jovel MD Primary Care Provider Herminio Jovel MD Unavailable Handy Rebollar MD Unavailable [phone] Vibha Carrington MD Unavailable My Perez [facility] Unavailable Reason for Visit * Reason Onset Date Comments Refill Request 02/10/2024 Encounter Details Date Type Department Care Team (Late st Contact Info) Description 02/10/2024 Amara Womack [address] [phone] Rosemary Parker, [address] [address] Refill Request Social History Tobacco Use Types [...] Sex Assigned at Female 06/23/2021 7:41 PM SAP SD ANALYST Legal Sex Female 3:16 AM SAP SD ANALYST Gender Identity Female 06/23/2021 7:41 PM SAP SD ANALYST Sexual Orientation Straight 06/23/2021 7: 41 PM SAP SD ANALYST Occupation Industry Job Start Date Job End Date Not on file Not on file Not on file Not on file documented as of this encounter Miscellaneous Notes * Telephone Encounter - Trisha Fiore - 02/22/2024 11:37 AM CDT Attempt #2 [employer] message sent. * Telephone Encounter - Autumn Oleary CMA - 02/17/2024 5:47 PM CDT Left message to call back. When pt calls back please advise of Dr. Jovel's message below and help schedule virtual or in person medication recheck appointment. Brandee Oleary MA * Telephone Encounter - Herminio Jovel MD - 02/10/2024 7:51 PM CDT Sent 2 months worth of prescriptions-due for 6-month med check, please schedule within the next 1 to 2 months, virtual visit okay. documented in this encounter Plan of Treatment Not on file documented as of this encounter Visit Diagnoses Diagnosis ADHD (attention deficit hyperactivity disorder), combined type Attention deficit disorder with hyperactivity documented in this encounter Additional Health Concerns Assessment Noted Time PHQ-9 Depression Total Score: 8 06/26/19 22 8:35 AM SAP SD ANALYST documented as of this encounter Care Teams Laboratory Equipment Installer Relationship Specialty Start Date End Date Herminio Jovel MD PCP - General Family Practice 11/08/13 Herminio Jovel MD [address] [place] [address] Assigned PCP 06/29/21 04/28/24 Handy Rebollar MD [facility] [address] [place], [place] [address] Pain Medicine 02/09/23 [place] [address] [place] [address] Assigned PCP 04/29/24 My Perez CNM [address] [place], [place] [address] Assigned OBGYN Provider 04/29/24 documented as of this encounter
[2024-07-30] MEDS: diazePAM 5 MG TABLET PO (22:02)
[2024-07-30] MEDS: OXYCODONE 1 MG/ML ORAL SOLN 5 MG PO (22:03)
== END 2024-07-30 23:26 | disposition home or self-care (01) ==
PROVIDERS: Emergency Provider Emergency Medicine
DX: M54.2 Cervicalgia (principal); S06.0X0A Concussion without loss of consciousness, initial encounter; V43.52XA Car driver injured in collision with other type car in traffic accident, initial encounter
CPT/HCPCS: 70450; 72125; 94761; 96374; 96375; 99283; 99284; A9270; J1171; J3360